=== PATIENT | female | born 1945 | race Caucasian/White ===

== ENCOUNTER 2018-03-02 06:32 | Inpatient (IN) | payer MEDICARE ==
[2018-03-02] VITALS (27 sets, daily range): BP systolic 119–168; BP diastolic 57–81; PULSE 73–113; RESP 12–18; Ht 154.9 cm; Wt 71.0 kg
[~2018-03-02] VITALS: Ht 154.9 cm; Wt 71.0 kg
[2018-03-02] MEDS ORDERED: LOSA1TAB28 PO (07:31)
[2018-03-02] MEDS ORDERED: RANI150T5 PO (07:31)
[2018-03-02] MEDS ORDERED: ASPI-817 PO (07:31)
[2018-03-02] MEDS ORDERED: METO-429 PO (07:31)
[2018-03-02] MEDS ORDERED: ATOR40TA68 PO (07:31)
[2018-03-02] MEDS ORDERED: POLYMYXIN B 500000 UNIT INJ ONE (07:45)
[2018-03-02] MEDS ORDERED: BACITRACIN 50000 UNITS INJ ONE (07:46)
--- NOTE | 2018-03-02 07:51 | PREAC ---
Date/Time of Note Date/Time of Note DATE: 03/02/18 TIME: 07:49 Anesthesia Eval and Record Evaluation Time Pre-Procedure Interview DATE: 03/02/18 TIME: 07:49 Age 72 Sex female NPO: 8 hrs Preoperative diagnosis ight knee OA Planned procedure right knee arthroplasty Past Medical History Past Medical History: Includes Cardio: HTN, Dyslipidemia, Other (EF 60%) Surgery & Anesthesia Issues No known issue Meds Anticoagulation: No Beta Bree within 24 hr: Yes Reported Medications Metoprolol Tartrate* (Lopressor*) 50 Mg Tab, 50 MG PO DAILY, #60 TAB 03/02/18 Atorvastatin* (Atorvastatin*) 40 Mg Tablet, 20 MG PO QHS, #30 TAB 03/02/18 Aspirin* (Aspirin* EC) 81 Mg Tablet.dr, 81 MG PO DAILY, TAB 03/02/18 Losartan-Hydrochlorothiazide (Losartan-HCTZ) 100-12.5 Mg Tab, 1 TAB PO DAILY, TAB 03/02/18 Ranitidine Hcl* (Ranitidine Hcl*) 150 Mg Tablet, 150 MG PO HS, #30 TAB 03/02/18 Meds reviewed: Yes Allergies Coded Allergies: No Known Allergy (Unverified , 03/02/18) Allergies Reviewed: Yes Labs/Studies Labs Reviewed: Reviewed by anesthesiologist Result Diagram: 03/02/18718 Laboratory Tests 03/02/18 07:19 test: N/A Studies: ECG, CXR (nl) Pre-procedure Exam Last vitals Vital Signs Date Temp Pulse Resp B/P (MAP) Pulse Ox O2 O2 Flow FiO2 Time Delivery Rate 03/02/18 97.7 76 18 166/71 99 Room Air 07:32 (102) Airway: Adequate mouth opening Mallampati: Mallampati I Teeth: Abnormal (denture) Lung: Normal Heart: Normal ASA Physical Status ASA physical status: 2 Emergency: None Planned Anesthetic General/MAC: ETT, LMA Neuraxial: Spinal Nerve block: Femoral (right) Planned Pain Management Single shot nerve block, Parenteral pain med Pre-operative Attestations Prior to commencing anesthesia and surgery, the patient was re-evaluated, there was verification of: *The patient's identity *The results of appropriate recent lab work and preoperative vital signs *The above evaluation not changing prior to induction *Anesthetic plan, risk benefits, alternative and complications discussed with patient/family; questions answered; patient/family understands, accepts and wishes to proceed. ALEXI OSORIO MD Mar 02, 2018 07:51
[2018-03-02] MEDS ORDERED: METOCLOPRAMIDE 10 MG INJ ONE (08:00)
[2018-03-02] MEDS ORDERED: morphine SULFATE/PF (10 MG/10 ML) INJ ONE (08:00)
[2018-03-02] MEDS ORDERED: ROPIVACAINE 0.5 % 30 ML VIAL ONE (08:00)
[2018-03-02] MEDS ORDERED: MIDAZOLAM 1 MG/ML 2 ML INJ ONE (08:00)
[2018-03-02] MEDS ORDERED: CEFAZOLIN 1 GM INJ ONE (08:00)
[2018-03-02] MEDS ORDERED: ONDANSETRON 4 MG INJ IV PRN (08:00)
[2018-03-02] MEDS ORDERED: EPHEDrine SULFATE 50 MG/5 ML SYG ONE (08:00)
[2018-03-02] MEDS ORDERED: hydrALAzine 20 MG INJ IV PRN (08:00)
[2018-03-02] MEDS ORDERED: PROPOFOL 20 ML ONE (08:00)
[2018-03-02] MEDS ORDERED: LABETALOL HCL 20MG INJ IV PRN (08:00)
[2018-03-02] MEDS ORDERED: HYDROmorphONE 1 MG/5 ML IV SYRINGE IV PRN ×3 (08:00)
[2018-03-02] MEDS ORDERED: ONDANSETRON 4 MG INJ ONE (08:00)
[2018-03-02] MEDS ORDERED: DESFLURANE 15 MIN ONE (08:00)
[2018-03-02] MEDS ORDERED: FAMOTIDINE 20 MG INJ ONE (08:00)
[2018-03-02] MEDS ORDERED: FENTAnyl 50 MCG/ML VIAL ONE (08:04)
[2018-03-02] MEDS ORDERED: ROPIVACAINE 0.2% 20 ML VIAL ONE (08:05)
--- NOTE | 2018-03-02 08:15 | HPN ---
Date/Time of Note Date/Time of Note DATE: 03/02/18 TIME: 08:14 Interval H&P Admission Note Pt. seen H&P reviewed: No system changes STEVE GÓMEZ MD Mar 02, 2018 08:15
[2018-03-02] MEDS ORDERED: TRANEXAMIC ACID 1,000 MG in DEXTROSE 5% 100 ML IV ONE (09:00)
--- NOTE | 2018-03-02 10:58 | NUR ---
RECEIVED FROM OR VIA BED S/P RT. TK REPLACEMENT. DRESSING TO RT. KNEE DRY AND INTACT. IMMOBILIZER IN PLACE. ICE PACK APPLIED. IV INFUSING IN LT ARM # 20 ANGIOCATH. A- PUMP APPLIED BILATERALLY. PEDAL PULSE PALPABLE. MOVEMENT TO BOTH LOWER EXTREMITIES.
--- NOTE | 2018-03-02 11:17 | OPR ---
Date/Time of Note Date/Time of Note DATE: 03/02/18 TIME: 11:14 Operative Report Preoperative Diagnosis Right knee osteoarthritis Postoperative Diagnosis Same Operation/Procedure Performed Right total knee replacement Surgeon see signature line Rn Allergy SERINA King Anesthesia Type: general, spinal, other Anesthesiologist: ALEXI OSORIO MD Estimated Blood Loss: 100 - 150 ml's Transfusion none Specimen None Grafts/Implants [employer] triathlon implants Femur size 2 Tibia size 2 Insert 11 mm Patella A35mm Complications none Pt Condition Post Procedure: stable Disposition: PACU Procedure Description INDICATIONS FOR PROCEDURE: This is a 72-year-old female who has had progressive pain in the right knee. The patient has failed nonoperative treatment and now presents for elective total knee replacement. Risks and benefits were discussed with the patient, risks including but not limited to infection, bleeding, blood clots, dislocation, fracture, knee stiffness, nerve damage, blood vessel damage, along with other medical, anesthetic and surgical complications were discussed. Informed consent was obtained. DESCRIPTION OF PROCEDURE: The patient's correct extremity was identified in the preoperative area. The patient was brought back to the operating room where a spinal anesthetic was placed followed by an adductor canal block. The correct extremity was then prepped and draped in the standard sterile manner. A timeout was performed. Esmarch was used to exsanguinate. The thigh tourniquet was inflated to 250 mmHg. I then made a standard midline incision for approaching the knee. I went through skin and subcutaneous tissue, made a medial parapatellar arthrotomy. Then, flexed the knee and introduced an intramedullary alignment guide. Distal femoral cut was made and then the extramedullary alignment guide was used to make the tibial cut. Flexion and extension gaps were checked. There were symmetric. The knee went from full extension to full flexion. I then turned my attention to the patella. I used an [id number] mill type cutting guide, cut the patellar to appropriate thickness and sized the patella. I then trialed the patella. The patella tracked well without any external pressure. I then made the peg holes for the femoral trial. Punched the tibia. I took out all trial components. Thoroughly irrigated the bony surfaces, dried them with a lap sponge. I then proceeded to cement the tibia, femur and patellar components. A trial insert was used till the cement hardened. After the cement hardened, I thoroughly irrigted the knee. The knee was well balanced. I then let down the tourniquet, obtained adequate hemostasis. I thoroughly irrigated the knee. I then impacted the appropriate all poly insert until it locked into place and I had full range of motion with just a jog of opening with varus and valgus stress. I then turned my attention to closure. I closed the medial parapatellar arthrotomy with interrupted #1 Vicryl, subcutaneous tissue was closed with 2-0 Vicryl, skin with van. Dry sterile dressings were applied. The patient had good perfusion to her foot with a 2+ dorsalis pedis pulse. She was then extubated and transported to recovery in stable condition. STEVE GÓMEZ MD Mar 02, 2018 11:17
[2018-03-02] MEDS ORDERED: DOCUSATE SODIUM 100 MG CAP PO ONE (11:30)
[2018-03-02] MEDS ORDERED: MAGNESIUM HYDROXIDE 30ML CUP PO PRN (11:30)
[2018-03-02] MEDS ORDERED: NALOXONE (0.4 MG/ML) INJ IV PRN (11:30)
[2018-03-02] MEDS ORDERED: NACL 0.9% 3 ML SYG IV SCH (11:30)
[2018-03-02] MEDS ORDERED: BISACODYL 10 MG SUPP PR PRN (11:30)
[2018-03-02] MEDS ORDERED: NA PHOSPHATE/BIPHOS 133 ML ENEMA PR PRN (11:30)
[2018-03-02] MEDS: CEFAZOLIN 2 GM/50 ML (PMX) 50 ML IVPB SCH ×2 (11:55→19:50)
--- NOTE | 2018-03-02 11:58 | PAC ---
Date/Time of Note Date/Time of Note DATE: 03/02/18 TIME: 11:58 Post-Anesthesia Notes Post-Anesthesia Note Last documented vital signs Vital Signs Date Temp Pulse Resp B/P (MAP) Pulse Ox O2 O2 Flow FiO2 Time Delivery Rate 03/02/18 Nasal 3.0 11:38 Cannula 03/02/18 98.1 70 12 142/57 97 11:20 (85) 03/02/18 98.2 11:00 03/02/18 76 07:32 Activity: WNL Respiratory function: WNL Cardiovascular function: WNL Mental status: Baseline Pain reasonably controlled: Yes Hydration appropriate: Yes Nausea/Vomiting absent: No ALEXI OSORIO MD Mar 02, 2018 11:58
[2018-03-02] MEDS: ONDANSETRON 4 MG INJ IV SCH ×3 (12:03→23:58)
--- NOTE | 2018-03-02 12:20 | NUR ---
TRANSPORTED TO . ACCOMPANIED BY TRANSPORT IN STABLE CONDITION. DRESSING TO RT. KNEE DRY AND INTACT. ICE PACK MAINTAINED. IMMOBILIZER IN PLACE. PT CALLED AND WILL FOLLOW PT. IN ROOM.PETIT CATH DRAINING CLEAR YELLOW URINE. A- PUMPS ON BILATERALLY. . IV PATENT. DENIES PAIN AT PRESENT. MOVEMENT AND SENSATION TO BOTH EXTREMETIES AND FEET.
--- NOTE | 2018-03-02 12:20 | NUR ---
REPORT GIVEN TO FABIAN CEVALLOS. FAMILY CALLED AND UPDATED RE- STATUS AND RM. KHAN..
[2018-03-02] MEDS: ENOXAPARIN 40 MG/0.4 ML SYG SC SCH ×2 (12:55→20:44)
[2018-03-02] MEDS: SOD CHLORIDE 0.9% 1,000 ML IV SCH (12:57)
--- NOTE | 2018-03-02 14:30 | NUR ---
PT evaluation Therapy day number 1 Evaluation Start Time 14:30 Evaluation End Time 15:15 Evaluation Total Time 45 min Subjective Current complaint of pain Pain Scale NUMERIC Pain Intensity 8 (0-10) Patient Stated Goal for Pain Relief 0 (0-10) Pain Level Comment patient medicated following evaluation, 06/22 initially Pre Treatment Vital Signs Stable Yes Supine to Sit Supervised Transfer Sit to Stand Ability Minimum Assist Bed Mobility Sit to Supine Supervised Bed Transfer Ability Minimum Assist Chair Transfer Ability Minimum Assist Additional Mobility Comments min A FWW for safety, supervised bed mobility for sequencing Gait Assist Levels Minimum Assist Assistive Devices Front Wheel Walker Ambulation Distance 25 feet Additional Gait Comments step to gait, antaligic gait with weight bearing R, knee immobilizer Weight Bearing Assessment Label Right Lower Extremity Weight Bearing Status Weight Bearing as Fanny Additional Weight Bearing Comments with knee immobilizer Static Sitting Balance Good Dynamic Sitting Balance Good Standing Static Balance Fair Dynamic Standing Balance Fair Safety Judgement Good Activity Tolerance Fair Equipment Present A pump Ulloa Catheter IV pump Additional Equipment Present knee immobilzer Post Treatment Pain Intensity 8 0-10 Quality Indicators Dizziness Light headedness Additional Post Treatment Comment See note Total Minutes 45 Total Units 3 PT Technical Record Comment 72 yo female presents s/p R TKA secondary to right knee OA on 03/02/18 PMH: HTN, Dyslipidemia, EF 60% Precautions: WBAT RLE, fall risk. R TKA protocol PLOF: Patient lives alone in 1st floor apartment, Per son, pt has SPC and FWW but refusing to use them. Previously mod I with no device but "limping" S: Patient in bed, agreeable to PT evaluation. Pt cleared for activity per RN. Son present in room to clarify PLOF and translate O: PT evaluation completed, pt returned back to bed following therapy intervention in direct care of RN. Patient complained of nausea and dizziness throughout however vitals stable throughout. Pain associated with weight bearing, and nausea throughout however no reported shortness of breath on room air. Spoke to RN regarding pt response to activity and PT plan of care. Unable to place CPM due to unavailability. A: Patient demonstrates fair mobility throughout with good ability to increase weight bearing on RLE despite reported pain. Patient receptive to physical therapy education and motivated to participate. PT educated patient and family regarding recovery and plan of care, both receptive. Patient could continue to benefit from skilled inpatient PT to improve strength, endurance, and functional mobility P: next treatment, CPM set up and review HEP with providing packet of ther-ex Recommendation: patient will require FWW for mobility, however family reports owning one, defer discharge disposition to MD.
[2018-03-02] MEDS: HYDROmorphONE 1 MG/ML SYG IV PRN (14:58)
[2018-03-02] MEDS: METOPROLOL 50 MG TAB PO SCH (15:00)
--- NOTE | 2018-03-02 15:25 | NUR ---
PT note Therapy day number 1 Subjective Current complaint of pain Pain Scale FLACC Pain Intensity 5 (0-10) Patient Stated Goal for Pain Relief 0 (0-10) Pain Level Comment R knee pain Pre Treatment Vital Signs Stable Yes Transfer Training Start Time 15:25 Additional Mobility Comments For CPM set up and training Transfer Training End Time 15:50 Total Transfer Training Time 25 min (8-127) Equipment Present A pump Ulloa Catheter IV pump Post Treatment Pain Intensity 5 0-10 Additional Post Treatment Comment See note Total Treament Time 25 min (8-127) Total Minutes 25 Total Units 2 PT Technical Record Comment S: CPM arrived, patient agreeable to intervention, son present at bedside O: PT intervention completed, performed CPM set up and education. Patient placed on CPM 0deg ext, 70 deg flex with good tolerance. AROM assessment of R knee 0-60 with pain at end range. Spoke to RN regarding pt response to activity and PT plan of care. patient and son receptive throughout treatment intervention. Provided HEP packet A: Patient presents with good tolerance to activity and receptive to PT education. Patient able to tolerate CPM without adverse limitations and overall demonstrates good compliance with treatment intervention P: next treatment review HEP from provided packet and improve gait tolerance with weight bearing on FWW
[2018-03-02] MEDS: HYDROCHLOROTHIAZIDE 12.5 MG CAP PO SCH (17:16)
[2018-03-02] MEDS: LOSARTAN 50 MG TAB PO SCH (17:16)
--- NOTE | 2018-03-02 18:15 | NUR ---
END OF SHIFT NOTE PT RESTING IN BED, A/A/OX4. DENIES PAIN, SOB OR DISCOMFORT AT THIS TIME. TOLERATED CPM WELL. REPORTS NAUSEA RESOLVED, TOLERATING CLEAR LIQUID DIET AT THIS TIME. SAFETY MAINTAINED THROUGHOUT SHIFT. BED IN LOW POSITION, CALL LIGHT IN REACH. WILL ENDORSE POC TO NOC RN.
[2018-03-02] MEDS ORDERED: ACETAMINOPHEN 500 MG TAB PO PRN (20:30)
[2018-03-02] MEDS: ATORVASTATIN 20 MG TAB PO SCH (20:43)
[2018-03-02] MEDS ORDERED: RANITIDINE 150 MG TAB PO SCH (21:00)
--- NOTE | 2018-03-03 00:59 | HP ---
DATE OF ADMISSION: 03/02/2018 CHIEF COMPLAINT: Right knee pain. HISTORY OF PRESENT ILLNESS: The patient is a 72-year-old female with history of hypertension, dyslip idemia, who was seen by Dr. Gómez as an outpatient for worsening right knee pain due to degenerat judit joint disease. The patient failed conservative treatment and was recommended to undergo total kn ee replacement. The patient was seen by Dr. Freddie Roe for cardiac clearance and was cleared for surgery. The patient was brought in to hospital today and underwent right total knee replacement. Postoperative pain is being managed by oxycodone and Dilaudid. The patient denies any chest pain or shortness of breath. No history of headaches and syncope. No history of CVA in the past. No known history of diabetes. No history of recent nausea, vomiting or diarrhea. No history of dysuria or he maturia prior to surgery. No history of any focal weakness including both motor and sensory deficit prior to surgery. REVIEW OF SYSTEMS: Other than postoperative pain, rest of review of systems was unremarkable. A tot al of 10 systems were reviewed and all positive and negative findings have been described in HPI. Re st of review of systems is unremarkable. PAST SURGICAL HISTORY: None. ALLERGIES: NONE. SOCIAL HISTORY: No smoking or alcohol. FAMILY HISTORY: Noncontributory. MEDICATION LIST: Reviewed and reconciled. PHYSICAL EXAMINATION: GENERAL: The patient is awake, alert, fairly oriented. VITAL SIGNS: Temperature 98.6, pulse 73, respirations 16, blood pressure 131/61, O2 saturation 96% o n 2 liter nasal cannula. HEENT: Atraumatic, normocephalic. Conjunctivae are normal. Oropharynx is clear. NECK: Supple. No thyromegaly. No carotid bruit. CHEST: Fairly clear. No use of accessory muscles. CARDIOVASCULAR: Regular rate and rhythm. S1, S2 normal. ABDOMEN: Soft, nondistended, nontender. EXTREMITIES: No pedal edema. Pedal pulses palpable. SKIN: Without acute rash. NEUROLOGIC: The patient is awake, alert, fairly oriented. No gross deficit, although exam was limit ed due to immediate postoperative state. LABORATORY DATA: Done this morning, WBC 6.6, hemoglobin 13.7, platelet 251. Sodium 138, potassium 4 .5, BUN 15, creatinine 0.6. AST 24, ALT 11, alkaline phosphatase 101. Coagulation profile was unrem arkable. IMPRESSION: 1. Right knee osteoarthritis status post total right knee arthroplasty. 2. Hypertension. 3. Dyslipidemia. PLAN: 1. The patient is admitted on medical floor. 2. The patient will be started on clear liquid diet, which will be advanced as tolerated. 3. As mentioned above, the patient will be given oxycodone and IV Dilaudid. We will add Tylenol for mild pain and fever. 4. As far as hypertension is concerned, we will continue Lopressor, Cozaar and hydrochlorothiazide a s tolerated. 5. For DVT prophylaxis, the patient has been started on Lovenox. 6. The patient will be continued on Lipitor at home. 7. Plan of care was discussed with the patient's family. 8. We will continue to follow her from medical standpoint. Dictated By: ANDREW SMITH MD AB/NTS Conf#: [id number] DID#: [id number] CC: STEVE GÓMEZ MD;*EndCC*
[2018-03-03] MEDS: oxyCODONE 5 MG TAB PO PRN ×4 (01:48→23:58)
[2018-03-03] MEDS: SOD CHLORIDE 0.9% 1,000 ML IV SCH ×3 (01:49→23:59)
[2018-03-03 03:25] VITALS: BP 120/58; PULSE 77; RESP 18
[2018-03-03] MEDS: CEFAZOLIN 2 GM/50 ML (PMX) 50 ML IVPB SCH (03:33)
[2018-03-03] MEDS: HYDROmorphONE 1 MG/ML SYG IV PRN ×5 (03:38→19:46)
[2018-03-03] MEDS: ONDANSETRON 4 MG INJ IV SCH (05:30)
--- NOTE | 2018-03-03 06:38 | NUR ---
RN EOSS NOTES: Patient reported good relief from administered PRN Roxicodone pills and Dilaudid IV this shift, afebrile with stable V/S over the last 12 hours. Encouraged to use incentive spirometer more frequently. RN has requested transporter to bring a [employer] machine for patient use; currently ice compress applied to right knee as needed which helps offer pain relief as well. Ulloa catheter discontinued @0630, due to void in the next 6-8 hours. Will endorse info at shift change to incoming day RN and endorse plan of care. Needs assisted.
[2018-03-03 07:56] VITALS: BP 127/60; PULSE 76; RESP 15
[2018-03-03] MEDS ORDERED: NON-FORMULARY/PATIENT OWN MED (Losartan-Hydrochlorothiazide (Losartan-HCTZ) 1 TAB) PO SCH (09:00)
[2018-03-03] MEDS: DOCUSATE SODIUM 100 MG CAP PO SCH ×2 (09:00→21:08)
[2018-03-03] MEDS: LOSARTAN 50 MG TAB PO SCH (09:01)
[2018-03-03] MEDS: HYDROCHLOROTHIAZIDE 12.5 MG CAP PO SCH (09:02)
[2018-03-03] MEDS: METOPROLOL 50 MG TAB PO SCH (09:03)
[2018-03-03] MEDS: ENOXAPARIN 40 MG/0.4 ML SYG SC SCH (09:06)
--- NOTE | 2018-03-03 09:45 | NUR ---
PT note Therapy day number 2 Subjective Current complaint of pain Pain Scale NUMERIC Pain Intensity 8 (0-10) Patient Stated Goal for Pain Relief 0 (0-10) Pain Level Comment R peroneals, TTP Pre Treatment Vital Signs Stable Yes Exercise Assessment Label Right Lower Extremity Exercise Type Active ROM Additional Exercise Comments per HEP packet Exercise Start Time 09:45 Exercise End Time 10:00 Total Exercise Time 15 min (8-127) Supine to Sit Minimum Assist Transfer Sit to Stand Ability Supervised Bed Mobility Sit to Supine Minimum Assist Bed Transfer Ability Supervised Chair Transfer Ability Supervised Toileting Ability Supervised Additional Mobility Comments supervised with use of FWW for transfers Gait Training Start Time 10:00 Gait Assist Levels Stand by Assist Assistive Devices Front Wheel Walker Ambulation Distance 75 feet Additional Gait Comments 75' with FWW, SBA Gait Training End Time 10:25 Total Gait Training Treatment Time 25 min (8-127) Weight Bearing Assessment Label Right Lower Extremity Weight Bearing Status Weight Bearing as Fanny Static Sitting Balance Good Dynamic Sitting Balance Good Standing Static Balance Fair Dynamic Standing Balance Fair Additional Balance Assessments Comments with use of FWW Safety Judgement Fair Activity Tolerance Fair Equipment Present A pump IV pump Post Treatment Pain Intensity 8 0-10 Additional Post Treatment Comment See note Total Treament Time 40 min (8-127) Total Minutes 40 Total Units 3 PT Technical Record Comment S: Pt in bed, agreeable to PT intervention. Pt reports significant RLE pain along peroneals, Pt cleared for activity per RN O: PT intervention completed, pt returned back to bed following therapy intervention with call light within reach and bed alarm activated. Patient assisted to bathroom following ambulation and independent with hygiene. patient assisted for CPM set up. Tolerates 0-45 deg, limited by pain. RN notified of patient progress A: Pt presents with fair mobility throughout however limited secondary to pain. Patient demonstrates good safety awareness and improve weight bearing on RLE with knee immobilizer. However tenderness to palpation along peroneals with pain with dorsiflexion of the ankle, RN aware. Patient receptive to PT instruction and compliant with plan of care, however limitation of pain. P: Progress as tolerated
--- NOTE | 2018-03-03 13:02 | PN ---
Date/Time of Note Date/Time of Note DATE: 03/03/18 TIME: 12:54 Assessment/Plan Lines/Catheters IV Catheter Type (from Nrsg): Peripheral IV Ulloa in Place (from Nrsg): No Assessment/Plan Assessment/Plan POD 1 s/p Right TKA Stable Patient received Lovenox 40 instead of 30 bid. She has had excessive bleeding into her knee. Will stop Lovenox now. Ultrasound Right LE to r/o DVT Pain control Knee immobilizer, hold CPM for now. OOB with knee immobilizer. Subjective 24 Hr Interval Summary Complaining of pain. Exam/Review of Systems Vital Signs Vitals Vital Signs Date Temp Pulse Resp B/P (MAP) Pulse Ox O2 O2 Flow FiO2 Time Delivery Rate 03/03/18 98.3 76 15 127/60 96 Room Air 07:56 (82) 03/02/18 2.0 16:30 Intake and Output 03/02/18 03/02/18 03/03/18 1515:00 23:00 07:00 IntakeIntake Total 1660 ml 1220 ml 3060 ml OutputOutput Total 125 ml 1150 ml BalanceBalance 1535 ml 1220 ml 1910 ml Exam Free Text/Dictation Right LE Incision c/d/i Calf soft and non tender, slight swelling Moderate effusion Foot warm and well perfused Intact motor and sensory function Results Result Diagram: 03/03/18 0436 03/02/18 0719 STEVE GÓMEZ MD Mar 03, 2018 13:02
--- NOTE | 2018-03-03 13:47 | PN ---
Date/Time of Note Date/Time of Note DATE: 03/03/18 TIME: 13:44 Assessment/Plan VTE Prophylaxis Risk score (from Nsg)>0 risk: 8 SCD applied (from Nsg): Yes Lines/Catheters IV Catheter Type (from Nrsg): Peripheral IV Urinary Cath still in place: No Assessment/Plan Assessment/Plan 1. Right knee osteoarthritis status post total right knee arthroplasty. - per ortho sx 2. Hypertension- continue Lopressor, Cozaar and hydrochlorothiazide as tolerated. 3. Dyslipidemia-will be continued on Lipitor at home. 4. For DVT prophylaxis, the patient has been started on Lovenox. Plan of care was discussed with staff We will continue to follow her from medical standpoint. Result Diagram: 03/03/18 0436 03/02/18 0719 Results 24hrs Laboratory Tests Test 03/03/18 04:36 White Blood Count 9.0 # Red Blood Count 3.57 #L Hemoglobin 10.8 #L Hematocrit 31.4 #L Mean Corpuscular Volume 88.0 Mean Corpuscular Hemoglobin 30.3 Mean Corpuscular Hemoglobin Concent 34.4 Red Cell Distribution Width 13.2 Platelet Count 174 # Mean Platelet Volume 10.7 H Immature Granulocytes % 0.300 Neutrophils % 64.7 Lymphocytes % 19.3 Monocytes % 15.1 H Eosinophils % 0.3 Basophils % 0.3 Nucleated Red Blood Cells % 0.0 Immature Granulocytes # 0.030 Neutrophils # 5.8 Lymphocytes # 1.7 Monocytes # 1.4 H Eosinophils # 0.0 Basophils # 0.0 Nucleated Red Blood Cells # 0.0 Subjective 24 Hr Interval Summary Musculoskeletal: bone/joint pain, restricted range of motion Exam/Review of Systems Vital Signs Vitals Vital Signs Date Temp Pulse Resp B/P (MAP) Pulse Ox O2 O2 Flow FiO2 Time Delivery Rate 03/03/18 98.3 76 15 127/60 96 Room Air 07:56 (82) 03/02/18 2.0 16:30 Intake and Output 03/02/18 03/02/18 03/03/18 1515:00 23:00 07:00 IntakeIntake Total 1660 ml 1220 ml 3060 ml OutputOutput Total 125 ml 1150 ml BalanceBalance 1535 ml 1220 ml 1910 ml Exam Musculoskeletal: range of motion Medications Medications Current Medications Sodium Chloride 1,000 ml @ 80 mls/hr [id number] IV Last administered on 03/03/18at 01:49; Admin Dose 80 MLS/HR; Start 03/02/18 at 11:07 IV Flush (NS 3 ml) 3 ml PER PROTOCOL IV ; Start 03/02/18 at 11:30 Oxycodone HCl (Roxicodone) 15 mg Q4H PRN PO PAIN; Start 03/02/18 at 11:30 Oxycodone HCl (Roxicodone) 10 mg Q4H PRN PO PAIN Last administered on 03/03/18at 10:33; Admin Dose 10 MG; Start 03/02/18 at 11:30 Oxycodone HCl (Roxicodone) 5 mg Q4H PRN PO PAIN; Start 03/02/18 at 11:30 Hydromorphone HCl (Dilaudid) 1 mg Q3H PRN IV BREAKTHROUGH PAIN Last administered on 03/03/18at 13:03; Admin Dose 1 MG; Start 03/02/18 at 11:30 Pantoprazole (Protonix Tab) 40 mg DAILY@06 PO ; Start 03/04/18 at 06:00 Docusate Sodium (Colace) 200 mg BID PO Last administered on 03/03/18at 09:00; Admin Dose 200 MG; Start 03/03/18 at 09:00; Stop 03/06/18 at 08:59 Simethicone (Mylicon) 80 mg TID PRN PO DISTENSION/GAS/BLOATING; Start 03/02/18 at 11:30 Senna/Docusate Sodium (Senokot-S) 2 tab BID PRN PO CONSTIPATION; Start 03/02/18 at 11:30 Magnesium Hydroxide (Milk Of Mag) 30 ml HS PRN PO CONSTIPATION; Start 03/02/18 at 11:30 Bisacodyl (Dulcolax Supp) 10 mg DAILY PRN [place] CONSTIPATION; Start 03/02/18 at 11:30 Sodium Biphosphate/ Sodium Phosphate (Fleet Enema) 133 ml DAILY PRN [place] CONSTIPATION; Start 03/02/18 at 11:30 Naloxone HCl (Narcan) 0.2 mg Q2M PRN IV DECREASED REPIRATORY RATE; Start 03/02/18 at 11:30 Enoxaparin Sodium (Lovenox) 40 mg DAILY SC Last administered on 03/03/18at 09:06; Admin Dose 40 MG; Start 03/03/18 at 09:00 Atorvastatin Calcium (Lipitor) 20 mg DAILY@21 PO Last administered on 03/02/18 20:43; Admin Dose 20 MG; Start 03/02/18 at 21:00 Metoprolol Tartrate (Lopressor) 50 mg DAILY PO Last administered on 03/03/18 09:03; Admin Dose 50 MG; Start 03/02/18 at 14:30 Losartan Potassium (Cozaar) 100 mg DAILY PO Last administered on 03/03/18 09:01; Admin Dose 100 MG; Start 03/02/18 at 15:30 Hydrochlorothiazide (Hydrochlorothiazide) 12.5 mg DAILY PO Last administered on 03/03/18 09:02; Admin Dose 12.5 MG; Start 03/02/18 at 15:30 Acetaminophen (Tylenol Tab) 500 mg Q4H PRN PO MILD PAIN(1-3)OR ELEVATED TEMP; Start 03/02/18 at 20:30 IRON CARVAJAL Mar 03, 2018 13:47
[2018-03-03 15:07] VITALS: BP 145/66; PULSE 84; RESP 17
--- NOTE | 2018-03-03 15:20 | NUR ---
PT note Therapy day number 2 Subjective Current complaint of pain Pain Scale FLACC Pain Intensity 10 (0-10) Patient Stated Goal for Pain Relief 0 (0-10) Pain Level Comment pain increased with weight bearing, RN aware Pre Treatment Vital Signs Stable Yes Transfer Training Start Time 15:20 Supine to Sit Minimum Assist Transfer Sit to Stand Ability Minimum Assist Bed Mobility Sit to Supine Maximum Assist Bed Transfer Ability Moderate Assist Chair Transfer Ability Moderate Assist Toileting Ability Moderate Assist Additional Mobility Comments significantly increased pain Transfer Training End Time 15:35 Total Transfer Training Time 15 min (8-127) Gait Assist Levels Moderate Assist Assistive Devices Front Wheel Walker Ambulation Distance 8 feet Weight Bearing Assessment Label Right Lower Extremity Weight Bearing Status Weight Bearing as Fanny Static Sitting Balance Fair Dynamic Sitting Balance Fair Standing Static Balance Fair Dynamic Standing Balance Fair Safety Judgement Good Activity Tolerance Poor Equipment Present A pump IV pump Post Treatment Pain Intensity 10 0-10 Additional Post Treatment Comment See note Total Treament Time 15 min (8-127) Total Minutes 15 Total Units 1 PT Technical Record Comment S: RN cleared pt for activity, Dopper resulted (-), per MD "continue physical therapy, D/C CPM" Patient getting up with MANAGER DISTRIBUTION to assist to bathroom, knee immmobilizer on. O: Assisted patient to bathroom however pt unable to ambulate without significant assist, required commode for toileting. patient assisted back to bed following therapy intervention and left in direct care of MANAGER DISTRIBUTION. Knee immobilzer on throughout treatment intervention, reports of pain throughout with weight bearing, no dizziness, or shortness of breath. Spoke to RN regarding pt response to activity and current condition A: patient presents with significantly increased pain throughout with minimal ability to weight bear on RLE. Patient requires cues to maintain safety with transfers as patient occasionally leaves walker during turn. Significant decline in functional mobility secondary to pain throughout. Expressed concerns to RN, to follow up 03/04/18. P: Progress as tolerated
--- NOTE | 2018-03-03 16:10 | NUR ---
FEVER PT'S TEMPERATURE 100.7, COOLING MEASURES APPLIED. TEMP 100.[address] GÓMEZ PAGED AND MESSAGE LEFT REGARDING ELEVATED TEMPERATURE. I.S. ENCOURAGED, CONTINUE COOLING MEASURES, WILL CONTINUE MONITORING.
--- NOTE | 2018-03-03 18:00 | NUR ---
END OF SHIFT NOTE PT RESTING IN BED, WITH SON AT BED SIDE. PT AFEBRILE AT THIS TIME, STILL NO CALL BACK FROM MD ORDERS. UNABLE TO PROCURE POLAR CARE FOR PT SINCE NO DISPOSABLE APPLICATORS AVAILABLE IN HOSPITAL AT THIS TIME. PER DISTRIBUTION, THEY ARE ON BACK ORDER. RIGHT KNEE STILL SWOLLEN, WITH RED DISCOLORATION. PT MEDICATED WITH DILAUDID AND OXYCODONE THROUGHOUT SHIFT DUE TO SEVERE PAIN. AT THIS TIME, PT REPORTS PAIN CONTROL. SAFETY MAINTAINED THROUGHOUT SHIFT. BED IN LOW POSITION, CALL LIGHT IN REACH, HOURLY ROUNDING DONE. WILL CONTINUE MONITORING AND WILL ENDORSE POC TO NOC RN.
[2018-03-03 20:00] VITALS: BP 150/66; PULSE 84; RESP 18
[2018-03-03 20:45] VITALS: BP 128/60; PULSE 79; RESP 18
[2018-03-03] MEDS: ATORVASTATIN 20 MG TAB PO SCH (21:08)
--- NOTE | 2018-03-03 23:12 | NUR ---
Hand-off report given to new primary RN Yen; patient is asleep in room snoring at this time. Plan of care endorsed.
--- NOTE | 2018-03-04 00:04 | NUR ---
RN NOTE received report at [id number] from FABIAN Brice. patient asleep, resting comfortably. awake at this time, vberbalized 7/10 pain on Right knee. roxicodone 10mg PO prn given.
[2018-03-04 03:39] VITALS: BP 131/72; PULSE 72; RESP 18
[2018-03-04] MEDS: oxyCODONE 5 MG TAB PO PRN ×4 (04:36→21:26)
[2018-03-04] MEDS: PANTOPRAZOLE (EC) 40 MG TAB PO SCH (05:28)
--- NOTE | 2018-03-04 06:23 | NUR ---
RN NOTE patient alert and oriented, able to make needs known. slept most through the shift. awakening between care. Afebrile, vital signs within limits. initailly pain was at 7/10 [id number] PO given as ordered. effective. at around 4am, complained of 4/10. roxicodone 1 tab given PRN as ordered. effective. ice pack applied to Right hip. Luisa's, son called and asked for updates. needs atteeded.
--- NOTE | 2018-03-04 08:00 | NUR ---
PT RECEIVED IN BED. A,A,OX4. NOT IN ANY ACUTE DISTRESS. THE PLAN OF CARE DISCUSSED W/ THE PT, VERBALIZED UNDERSTANDING. CALL LIGHT IN REACH. PT ENCOURAGED TO CALL FOR ASSISTANCE. WILL CONT. MONITORING. WILL CONT. W/ THE PLAN OF CARE.
[2018-03-04 08:32] VITALS: BP 119/57; PULSE 98; RESP 16
[2018-03-04] MEDS: ENOXAPARIN 40 MG/0.4 ML SYG SC SCH ×2 (09:00→09:06)
[2018-03-04] MEDS: DOCUSATE SODIUM 100 MG CAP PO SCH ×2 (09:04→21:27)
[2018-03-04] MEDS: LOSARTAN 50 MG TAB PO SCH (09:04)
[2018-03-04] MEDS: HYDROCHLOROTHIAZIDE 12.5 MG CAP PO SCH (09:04)
[2018-03-04] MEDS: METOPROLOL 50 MG TAB PO SCH (09:05)
--- NOTE | 2018-03-04 10:11 | NUR ---
PT NOTE [facility] Patient: Luisa Madera : 1945 Age/Sex: 72/F Unit#: [id number] Room/Bed: 431/A User: Karl Thomas PT Date: 03/04/18 09:40 Type: PT Technical Record Therapy day number 3 Subjective Current complaint of pain Pain Scale NUMERIC Pain Intensity 8 (0-10) Patient Stated Goal for Pain Relief 0 (0-10) Pain Level Comment R knee pain Pre Treatment Vital Signs Stable Yes Transfer Training Start Time 09:40 Supine to Sit Minimum Assist Transfer Sit to Stand Ability Stand by Assist Bed Mobility Sit to Supine Moderate Assist Bed Transfer Ability Contact Guard Assist Chair Transfer Ability Contact Guard Assist Toileting Ability Supervised Additional Mobility Comments with FWW Transfer Training End Time 09:52 Total Transfer Training Time 12 min (8-127) Gait Training Start Time 09:52 Gait Assist Levels Contact Guard Assist Assistive Devices Front Wheel Walker Ambulation Distance 30 feet Additional Gait Comments 10' x 2; 30' with FWW; step-to gait pattern, antalgic, see PT nte Gait Training End Time 10:11 Total Gait Training Treatment Time 19 min (8-127) Weight Bearing Assessment Label Right Lower Extremity Weight Bearing Status Weight Bearing as Fanny Static Sitting Balance Fair plus Dynamic Sitting Balance Fair plus Standing Static Balance Fair plus Dynamic Standing Balance Fair Additional Balance Assessments Comments FWW Safety Judgement Good Activity Tolerance Poor Equipment Present A pump Additional Equipment Present knee immmobilizer Post Treatment Pain Intensity 10 0-10 Additional Post Treatment Comment SEE PT NOTE Total Treament Time 31 min (8-127) Total Minutes 31 Total Units 2 PT Technical Record Comment S: Pt reported knee pain, states she is feeling better compared to yesterday O: FABIAN Wheeler cleared pt for PT session. Pt received semi-supine in bed, donning knee immobilizer, ice on knee. Noted R knee warmth. Pt participated in interventions above, assisted pt to restroom using adult FWW noted difficulty amb i.e. decreased stance time on R, hopping two steps on L for every R step, significantly antalgic; amb with pediatric walker with improved step length B though still antalgic, increased B UE support. Pt returned to bed, all needs in reach, no signs of distress, bed alarm activated, son present. A; Pt gait distance (30') limited by R LE pain, donned knee immobilizer throughout. Pt continues to require greatest assistance with bed mobility with difficulty lifting R LE in and out of bed. R knee still painful with wb with notable warmth .RN notified. P: Continue c PT POC; per note hold CPM for now
--- NOTE | 2018-03-04 11:52 | PN ---
DATE: 03/04/2018 SUBJECTIVE AND INTERVAL HISTORY: The patient had excessive bleeding into her right knee and Lovenox was discontinued. The patient also underwent venous Doppler which was negative for DVT. The patient denies any chest pain or shortness of breath. The patient still has postoperative pain. The patient also had a T-max of 100.7 yesterday. No reported any active bleeding today from incision site. PHYSICAL EXAMINATION: GENERAL: Reveals the patient to be awake, alert. VITAL SIGNS: T-max 100.7, current temperature 97.8, pulse 98, respiratory rate 16, blood pressure 119/57, O2 saturation 94% on room air. HEENT: No eye discharge or redness. Conjunctivae and lids are normal. Oropharynx is grossly negative. NECK: No mass, no JVD. CHEST: Fairly clear. No use of accessory muscles. CARDIOVASCULAR: S1, S2 normal. No murmur. ABDOMEN: Soft, nondistended, nontender. EXTREMITIES: Pedal pulse is palpable. Incision has a dressing. No active bleeding outside the dressing. LABORATORY DATA: WBC 13.8, hemoglobin 9.5, platelet 171. Sodium 125 down from 138, potassium 4.2, BUN 11, creatinine 0.7, glucose 124. IMPRESSION: 1. Hyponatremia. Since the drop of sodium is so dramatic from within 48 hours, we will first do repeat BMP. We will hold off on hydrochlorothiazide. If patient persistently have hyponatremia, then we will initiate workup and treatment. 2. Mild leukocytosis and low-grade fever. We will send urine C and S. Hold off on empiric antibiotic at this time. 3. Status post right knee replacement. Continue postop care as per ortho. Continue SCD for now until systemic anticoagulation can be resumed once cleared by orthopedics. 4. Hypertension. Continue current regimen. We will add hydralazine on p.r.n. basis. 5. Postoperative anemia due to acute blood loss. We will add iron supplement. Continue stool softener. 6. Dyslipidemia. Continue Lipitor. Plan of care was discussed with patient's son as well as nursing staff. Dictated By: ANDREW SMITH MD AB/NTS Conf#: [id number] DID#: [id number] CC: STEVE GÓMEZ MD;*EndCC* ABBE
--- NOTE | 2018-03-04 12:30 | NUR ---
BELL FORM SIGNED. MET WITH PATIENT IN THE ROOM WITH DAUGHTER IN LAW. EXPRESSED THAT THEY WANT PATIENT TO GO TO [facility] FOR REHAB. CALLED [facility] A [phone] - SPOKE WITH RAVEN . INITIALLY SHE COULDN'T ACCEPT PT DUE TO OBSERVATION STATUS - DOES NOT HAVE 3 DAYS QUALIFYING STAY. HOWEVER, IZABELLA ZHANG SPOKE WITH HER AND GAVE THE MEDICAL ID NUMBER - SPOKE WITH RAVEN AGAIN AND SHE SAID THAT SHE CAN ACCEPT PT BECAUSE SHE HAS MEDICAL IN PLACE. FAXED INQUIRY TO RAVEN AT FAX # [phone] . IZABELLA ZHANG MADE AWARE. PT C/O INCREASED PAIN ON KNEE - AMBULATED 3O" WITH FWW.
[2018-03-04 14:54] VITALS: BP 137/63; PULSE 86; RESP 16
--- NOTE | 2018-03-04 17:38 | NUR ---
EOSS: PT'S HEMODYNAMICS AND RESPIR. STATUS ARE STABLE. NO COMPLICATIONS. PAIN MGMT IS EFFECTIVE. WILL CONT. MONITORING. WILL CONT. W/ THE PLAN OF CARE.
[2018-03-04 20:22] VITALS: BP 139/62; PULSE 88; RESP 18
[2018-03-04] MEDS: SOD CHLORIDE 0.9% 1,000 ML IV SCH (21:26)
[2018-03-04] MEDS: ATORVASTATIN 20 MG TAB PO SCH (21:27)
[2018-03-05] MEDS: SOD CHLORIDE 0.9% 1,000 ML IV SCH ×2 (02:20→15:38)
[2018-03-05 03:24] VITALS: BP 141/67; PULSE 93; RESP 18
[2018-03-05] MEDS: PANTOPRAZOLE (EC) 40 MG TAB PO SCH (05:43)
--- NOTE | 2018-03-05 06:42 | NUR ---
PT HAS HAD AN UNEVENTFUL NOC. MEDICATED FOR PAINX1 WITH EFFECTIVENESS. ASSISTED TO BSC A FEW TIMES THROUGH THE NOC. VSS, AFEBRILE. NOW RESTING IN BED WITH EYES CLOSED NO SS DISCOMFORT NOTED. WILL CONTINUE POC. PT PENDING SNIF VS ARU TRANSFER.
[2018-03-05 07:18] VITALS: BP 131/62; PULSE 92; RESP 19
--- NOTE | 2018-03-05 07:22 | OPPN ---
Date/Time of Note Date/Time of Note DATE: 03/05/18 TIME: 07:20 Event Note Anesthesia Note: A 72 year female s/p right knee replacement post op #1 under GA and spinal with duramorpg for post op pain is doing well.No pain, N/V. headache, itching. No neural deficit. are per surgery ALEXI OSORIO MD Mar 05, 2018 07:22
[2018-03-05] MEDS: DOCUSATE SODIUM 100 MG CAP PO SCH ×2 (08:13→21:06)
[2018-03-05] MEDS: METOPROLOL 50 MG TAB PO SCH (08:14)
[2018-03-05] MEDS: LOSARTAN 50 MG TAB PO SCH (08:14)
[2018-03-05] MEDS: oxyCODONE 5 MG TAB PO PRN ×3 (08:15→21:06)
--- NOTE | 2018-03-05 10:00 | NUR ---
PT note Therapy day number 4 Subjective Current complaint of pain Pain Scale NUMERIC Pain Intensity 8 (0-10) Patient Stated Goal for Pain Relief 0 (0-10) Pain Level Comment R knee "a little" prior to gait, 09/22 following Exercise Assessment Label Right Lower Extremity Exercise Type Active ROM Additional Exercise Comments Per HEP packet Transfer Training Start Time 10:00 Supine to Sit Supervised Transfer Sit to Stand Ability Supervised Bed Mobility Sit to Supine Minimum Assist Bed Transfer Ability Stand by Assist Chair Transfer Ability Stand by Assist Additional Mobility Comments with use of FWW for UE balance Transfer Training End Time 10:10 Total Transfer Training Time 10 min (8-127) Gait Training Start Time 10:10 Gait Assist Levels Stand by Assist Assistive Devices Front Wheel Walker Ambulation Distance 75 feet Additional Gait Comments 75' with FWW, see note for gait comments Gait Training End Time 10:38 Total Gait Training Treatment Time 28 min (8-127) Weight Bearing Assessment Label Right Lower Extremity Weight Bearing Status Weight Bearing as Fanny Static Sitting Balance Good Dynamic Sitting Balance Good Standing Static Balance Fair plus Dynamic Standing Balance Fair Additional Balance Assessments Comments with use of FWW Safety Judgement Good Activity Tolerance Fair Equipment Present A pump IV pump Additional Equipment Present knee immobilizer Post Treatment Pain Intensity 8 0-10 Additional Post Treatment Comment See note Total Treament Time 38 min (8-127) Total Minutes 38 Total Units 3 PT Technical Record Comment S:Patient in bed, agreeable to PT intervention. pt cleared for activity per RN, states patient had been premedicated O: PT interventions completed, pt returned back to bed following therapy intervention with call light within reach and bed alarm activated. Spoke to RN regarding pt resposne to activity and PT plan of care. Knee immobilizer on at all times. No reports of dizziness, or shortness of breath with activity. Pain with weight bearing. A: Patient presents with significantly improved mobility throughout and tolerance to weight bearing. Patient presents with limited step through of LLE with antalgic gait throughout. Patient receptive to PT education and demonstrates good awareness of functional limitations, patient requires assist for sit to supine due to heaviness of RLE but overall stronger mobility throughout. P: Progress gait and endurance as tolerated
--- NOTE | 2018-03-05 11:10 | NUR ---
REPORT WAS GIVEN TO FABIAN CEVALLOS FOR CONTINUITY OF CARE.
--- NOTE | 2018-03-05 12:03 | PN ---
Date/Time of Note Date/Time of Note DATE: 03/05/18 TIME: 12:02 Assessment/Plan VTE Prophylaxis Risk score (from [facility])>0 risk: 10 SCD applied (from [facility]): Yes Pharmacological prophylaxis: NA/contraindicated Pharm contraindication: bleeding Lines/Catheters IV Catheter Type (from [facility]): Peripheral IV Urinary Cath still in place: No Assessment/Plan Hospital Course Patient is awake alert remains hemodynamically stable afebrile complains of the right knee pain. Patient was was drop of hemoglobin, no indication for blood transfusion, continue to monitor H&H. Assessment/Plan -Right knee osteoarthritis, status post total right knee arthroplasty by Dr Gutiérrez on 03/02/18. -Anemia of acute blood loss. Continue to monitor H&H, will transfuse as needed. -Hyponatremia, improved. -Hypertension. -Dyslipidemia. Further recommendations based on clinical course. Plan of care discussed with Dr. Irene. Result Diagram: 03/05/18 0440 03/05/18 0440 Results 24hrs Laboratory Tests Test 03/04/18 14:47 03/05/18 04:40 Sodium Level 125 L 129 L Potassium Level 4.2 3.4 L Chloride Level 84 L 88 L Carbon Dioxide Level 30 32 H Anion Gap 11 9 Blood Urea Nitrogen 12 10 Creatinine 0.84 0.69 Est Glomerular Filtrat Rate mL/min Glucose Level 135 127 Calcium Level 8.7 8.8 White Blood Count 10.8 # Red Blood Count 2.93 L Hemoglobin 8.6 L Hematocrit 25.3 L Mean Corpuscular Volume 86.3 Mean Corpuscular Hemoglobin 29.4 Mean Corpuscular Hemoglobin Concent 34.0 Red Cell Distribution Width 12.6 Platelet Count 163 Mean Platelet Volume 10.0 Immature Granulocytes % 0.600 H Neutrophils % 75.8 Lymphocytes % 12.7 L Monocytes % 10.0 Eosinophils % 0.6 Basophils % 0.3 Nucleated Red Blood Cells % 0.0 Immature Granulocytes # 0.070 H Neutrophils # 8.2 H Lymphocytes # 1.4 Monocytes # 1.1 H Eosinophils # 0.1 Basophils # 0.0 Nucleated Red Blood Cells # 0.0 Exam/Review of Systems Vital Signs Vitals Vital Signs Date Temp Pulse Resp B/P (MAP) Pulse Ox O2 O2 Flow FiO2 Time Delivery Rate 03/05/18 98.2 92 19 131/62 96 07:18 (85) 03/03/18 Room Air 20:45 03/02/18 2.0 16:30 Intake and Output 03/04/18 03/04/18 03/05/18 1515:00 23:00 07:00 IntakeIntake Total 730 ml OutputOutput Total 200 ml 400 ml BalanceBalance -200 ml 330 ml Exam Constitutional: alert, oriented Head: normocephalic Respiratory: clear to auscultation Cardiovascular: nl pulses Gastrointestinal: soft, non-tender Musculoskeletal: other (R knee swelling, s/p surgery) Neurological: nl mental status Skin: nl turgor Medications Medications Current Medications IV Flush (NS 3 ml) 3 ml PER PROTOCOL IV ; Start 03/02/18 at 11:30 Oxycodone HCl (Roxicodone) 15 mg Q4H PRN PO PAIN Last administered on 03/05/18at 08:15; Admin Dose 15 MG; Start 03/02/18 at 11:30 Oxycodone HCl (Roxicodone) 10 mg Q4H PRN PO PAIN Last administered on 03/03/18at 23:58; Admin Dose 10 MG; Start 03/02/18 at 11:30 Oxycodone HCl (Roxicodone) 5 mg Q4H PRN PO PAIN Last administered on 03/04/18at 04:36; Admin Dose 5 MG; Start 03/02/18 at 11:30 Hydromorphone HCl (Dilaudid) 1 mg Q3H PRN IV BREAKTHROUGH PAIN Last administered on 03/03/18at 19:46; Admin Dose 1 MG; Start 03/02/18 at 11:30 Pantoprazole (Protonix Tab) 40 mg DAILY@06 PO Last administered on 03/05/18at 05:43; Admin Dose 40 MG; Start 03/04/18 at 06:00 Docusate Sodium (Colace) 200 mg BID PO Last administered on 03/05/18at 08:13; Admin Dose 200 MG; Start 03/03/18 at 09:00; Stop 03/06/18 at 08:59 Simethicone (Mylicon) 80 mg TID PRN PO DISTENSION/GAS/BLOATING; Start 03/02/18 at 11:30 Senna/Docusate Sodium (Senokot-S) 2 tab BID PRN PO CONSTIPATION; Start 03/02/18 at 11:30 Magnesium Hydroxide (Milk Of Mag) 30 ml HS PRN PO CONSTIPATION; Start 03/02/18 at 11:30 Bisacodyl (Dulcolax Supp) 10 mg DAILY PRN OK CONSTIPATION; Start 03/02/18 at 11:30 Sodium Biphosphate/ Sodium Phosphate (Fleet Enema) 133 ml DAILY PRN OK CONSTIPATION; Start 03/02/18 at 11:30 Naloxone HCl (Narcan) 0.2 mg Q2M PRN IV DECREASED REPIRATORY RATE; Start 03/02/18 at 11:30 Atorvastatin Calcium (Lipitor) 20 mg DAILY@21 PO Last administered on 03/04/18at 21:27; Admin Dose 20 MG; Start 03/02/18 at 21:00 Metoprolol Tartrate (Lopressor) 50 mg DAILY PO Last administered on 03/05/18at 08:14; Admin Dose 50 MG; Start 03/02/18 at 14:30 Losartan Potassium (Cozaar) 100 mg DAILY PO Last administered on 03/05/18at 08:14; Admin Dose 100 MG; Start 03/02/18 at 15:30 Acetaminophen (Tylenol Tab) 500 mg Q4H PRN PO MILD PAIN(1-3)OR ELEVATED TEMP; Start 03/02/18 at 20:30 Hydralazine HCl (Apresoline) 25 mg Q6H PRN PO ELEVATED SYSTOLIC BP; Start 03/04/18 at 11:30 Sodium Chloride 1,000 ml @ 75 mls/hr [id number] IV Last administered on 03/05/18at 02:20; Admin Dose 75 MLS/HR; Start 03/04/18 at 21:00 TERESITA ARNOLD Mar 05, 2018 12:03
--- NOTE | 2018-03-05 13:04 | PN ---
Date/Time of Note Date/Time of Note DATE: 03/05/18 TIME: 13:02 Assessment/Plan Lines/Catheters IV Catheter Type (from Nrsg): Peripheral IV [place]ll[place] in Place (from Nrsg): No Assessment/Plan Assessment/Plan POD 3 Stable Patient bled into her knee. Have stopped Lovenox Continued SCD's for now, continue to hold Lovenox No evidence of DVT on ultrasound Continue knee immobilizer Will continue to hold CPM H/H dropped again today, will continue to monitor. Re check tomorrow. Hold discharge for now. Subjective 24 Hr Interval Summary Pain is improved. Ambulated with PT today. Exam/Review of Systems Vital Signs Vitals Vital Signs Date Temp Pulse Resp B/P (MAP) Pulse Ox O2 O2 Flow FiO2 Time Delivery Rate 03/05/18 98.2 92 19 131/62 96 07:18 (85) 03/03/18 Room Air 20:45 03/02/18 2.0 16:30 Intake and Output 03/04/18 03/04/18 03/05/18 1515:00 23:00 07:00 IntakeIntake Total 730 ml OutputOutput Total 200 ml 400 ml BalanceBalance -200 ml 330 ml Exam Free Text/Dictation Right LE Incision c/d/i Large effusion in knee No erythema Calf soft and non tender Intact motor ans sensory function in foot Foot warm and well perfused Results Result Diagram: 03/05/1843903/05/18439 STEVE GÓMEZ MD Mar 05, 2018 13:04
--- NOTE | 2018-03-05 14:00 | NUR ---
PT note Therapy day number 4 Subjective Current complaint of pain Pain Scale NUMERIC Pain Intensity 8 (0-10) Patient Stated Goal for Pain Relief 0 (0-10) Pain Level Comment R knee Exercise Assessment Label Right Lower Extremity Exercise Type Active ROM Additional Exercise Comments per HEP packet, reviewed Exercise Start Time 14:00 Exercise End Time 14:15 Total Exercise Time 15 min (8-127) Safety Judgement Good Activity Tolerance Fair Equipment Present A pump Post Treatment Pain Intensity 8 0-10 Additional Post Treatment Comment See note Total Treament Time 15 min (8-127) Total Minutes 15 Total Units 1 PT Technical Record Comment S: Patient in bed, reports R knee "about the same". patient hesitant to move R knee but agreeable to PT intervention. O: PT intervention completed, pt returned back to bed following therapy intervention with call light within reach and bed alarm activated. Spoke to RN regarding pt response to activity and PT plan of care. Instructed on HEP and with duration and frequency with good return. A: Pt instructed on HEP with fair compliance. Patient understanding of frequency ability to perform ther-ex however hesitant to moving R knee. patient receptive to PT instruction and endorses ability to ambulate to and from bathroom with FWW assist P: Continue to progress mobility as tolerated with FWW
--- NOTE | 2018-03-05 18:30 | NUR ---
END OF SHIFT NOTE PT RESTING IN BED. A/A/OX4. REPORTS PAIN CONTROLLED WITH PO PAIN MEDS. INCISION CLEAN, DRY AND INTACT, NO S/S OF BLEEDING. PER MD NOTES, HH STILL DROPPING, DC TO [facility] HELD FOR TODAY. VSS, NO CHANGE IN CONDITION AT THIS TIME. SAFETY MAINTAINED THROUGHOUT SHIFT. BED IN LOW POSITION, CALL LIGHT IN REACH. HOURLY ROUNDS PERFORMED. WILL CONTINUE MONITORING AND WILL ENDORSE POC TO NOC RN.
[2018-03-05 20:45] VITALS: BP 123/60; PULSE 81; RESP 18
[2018-03-05] MEDS: ATORVASTATIN 20 MG TAB PO SCH (21:06)
[2018-03-05] MEDS ORDERED: POTASSIUM CHLORIDE 20 MEQ POWDER FOR ORAL SOLN PO ONE (21:30)
[2018-03-06] MEDS: oxyCODONE 5 MG TAB PO PRN ×4 (02:46→23:23)
[2018-03-06] MEDS: SOD CHLORIDE 0.9% 1,000 ML IV SCH ×2 (02:49→15:23)
[2018-03-06 02:57] VITALS: BP 169/76; PULSE 83; RESP 17
[2018-03-06] MEDS: PANTOPRAZOLE (EC) 40 MG TAB PO SCH (05:14)
--- NOTE | 2018-03-06 06:34 | NUR ---
PT MEDICATED FOR PAIN WITH EFFECTIVENESS REPORTED. NO OTHER COMPLAINTS VERBALIZED. USING WALKER W/O DIFFICULTY ET PIVOTS TO BSC WITH SBA. DC PLANNING IN PROGRESS. NOW ASLEEP WITH NO SS DISCOMFORT NOTED. WILL CONTINUE POC
[2018-03-06 07:49] VITALS: BP 129/60; PULSE 80; RESP 18
[2018-03-06] MEDS: LOSARTAN 50 MG TAB PO SCH (08:18)
[2018-03-06] MEDS: METOPROLOL 50 MG TAB PO SCH (08:20)
[2018-03-06] MEDS: SENNA/DOCUSATE NA (8.6MG/50MG) TAB PO PRN ×2 (09:24→21:00)
--- NOTE | 2018-03-06 09:30 | NUR ---
PT NOTE Therapy day number 5 Subjective Current complaint of pain Pain Scale NUMERIC Pain Intensity 6 (0-10) Patient Stated Goal for Pain Relief 0 (0-10) Pain Level Comment R knee Transfer Training Start Time 09:30 Supine to Sit Supervised Transfer Sit to Stand Ability Supervised Bed Mobility Sit to Supine Contact Guard Assist Toileting Ability Supervised Additional Mobility Comments Transfers w/AD Transfer Training End Time 09:42 Total Transfer Training Time 12 min (8-127) Gait Training Start Time 09:42 Gait Assist Levels Supervised Assistive Devices Front Wheel Walker Ambulation Distance 85 feet Additional Gait Comments step to pattern, slight antalgic gait, no LOB/buckling Gait Training End Time 10:09 Total Gait Training Treatment Time 27 min (8-127) Weight Bearing Assessment Label Right Lower Extremity Weight Bearing Status Weight Bearing as Fanny Static Sitting Balance Good Dynamic Sitting Balance Good Standing Static Balance Good Dynamic Standing Balance Fair Additional Balance Assessments Comments FWW Safety Judgement Good Activity Tolerance Fair Equipment Present A pump IV pump Additional Equipment Present knee immobilizer Post Treatment Pain Intensity 6 0-10 Variance Documentation SEE BELOW AND PT NOTE Total Treament Time 39 min (8-127) Total Minutes 39 Total Units 3 PT Technical Record Comment PT NOTE S: Pt stated, "I have some pain, but I am okay." Agreeable for PT and cleared per FABIAN Orona O: Received pt in semi-fowlers, alert. Donned/doffed knee immobilizer in bed w/Lyla for OOB activities. Bed mobility w/HOB elevated using BR Supervised/Nba. Applied gait belt at EOB. STS to FWW Supervised. Gait training performed w/FWW 85' Supervised. Noted step to pattern, slight antalgic gait, no LOB/buckling, mod BUE increased pressure om AD, and intermittent slow/steady alvina. Pt required VCs to maintain distance from AD for safe ambulation. Assisted pt back to room to toilet per pt's request Supervised. Assisted pt BTB CGA for RLE onto bed per pt's request. Left pt in comfort position, call light/phone within reach, bed alarmed, SCD's reapplied, and all needs met. FABIAN Delgado. informed of pt's status. A: Fair tolerance to tx. Pt showed no signs of distress or SOB during or after tx. No c/o dizziness or nausea throughout tx. Pt required frequent standing rest breaks due to reporting BUE fatigue on AD and R knee pain. P: Continue POC and progress as tolerated.
--- NOTE | 2018-03-06 13:55 | NUR ---
PT NOTE Therapy day number 5 Subjective Current complaint of pain Pain Scale NUMERIC Pain Intensity 6 (0-10) Patient Stated Goal for Pain Relief 0 (0-10) Pain Level Comment R knee Transfer Training Start Time 13:55 Chair Transfer Ability Supervised Additional Mobility Comments Left sitting in chair w/family present in room, RN aware Transfer Training End Time 14:05 Total Transfer Training Time 10 min (8-127) Gait Training Start Time 14:05 Gait Assist Levels Supervised Assistive Devices Front Wheel Walker Ambulation Distance 100 feet Additional Gait Comments step to pattern, slight antalgic gait, no LOB/buckling Gait Training End Time 14:34 Total Gait Training Treatment Time 29 min (8-127) Weight Bearing Assessment Label Right Lower Extremity Weight Bearing Status Weight Bearing as Fanny Static Sitting Balance Good Dynamic Sitting Balance Good Standing Static Balance Good Dynamic Standing Balance Fair Additional Balance Assessments Comments FWW Safety Judgement Good Activity Tolerance Good Equipment Present A pump IV pump Additional Equipment Present knee immobilizer Post Treatment Pain Intensity 7 0-10 Variance Documentation SEE BELOW AND PT NOTE Total Treament Time 39 min (8-127) Total Minutes 39 Total Units 3 PT Technical Record Comment PT NOTE S: Pt stated, "My pain is still there. Like a 6 right now." Agreeable for PT and cleared per FABIAN Orona O: Received pt standing outside restroom w/RN, pt care was transferred to this therapist. Applied gait belt. Gait training performed w/FWW 100' Supervised. Noted step to pattern, slight antalgic gait, no LOB/buckling, mod BUE increased pressure om AD, and intermittent slow/steady alvina. Pt required reminder VCs to maintan distance from AD for safe ambulation and to decrease BUE pressure from AD. Pt verbalized and demonstrated w/far return. Assisted pt back to room and pt sat and left in chairside per pt's request Supervised. Left pt in comfort position, call light/phone within reach, and all needs met. FABIAN Delgado. informed of pt's status and location. A: Good tolerance to tx. Pt showed no signs of distress or SOB during or after tx. No c/o dizziness or nausea throughout tx. Pt required less standing rest breaks compared to previous tx. Gait distance improved compared to previous tx. P: Continue POC and progress as tolerated.
[2018-03-06 15:18] VITALS: BP 141/64; PULSE 83; RESP 18
--- NOTE | 2018-03-06 17:18 | PN ---
Date/Time of Note Date/Time of Note DATE: 03/06/18 TIME: 17:17 Assessment/Plan VTE Prophylaxis Risk score (from Ns)>0 risk: 4 SCD applied (from Ns): Yes Pharmacological prophylaxis: NA/contraindicated Pharm contraindication: bleeding Lines/Catheters IV [facility] Peripheral IV Urinary Cath still in place: No Assessment/Plan Hospital Course No acute events overnight, patient developed right knee hematoma, continue to hold Lovenox continue knee immobilizer. Hemoglobin is 8.0 today continue to monitor sodium is 134 today, pain is adequately controlled. Assessment/Plan -Right knee osteoarthritis, status post total right knee arthroplasty by Dr Gutiérrez on 03/02/18. -Anemia of acute blood loss. Continue to monitor H&H, will transfuse as needed. -Hyponatremia, resolved. -Hypertension. Continue metoprolol and and Cozaar. -Dyslipidemia. Continue statin. Further recommendations based on clinical course. Plan of care discussed with Dr. Irene. Result Diagram: 03/06/18 0444 03/06/18 0444 Results 24hrs Laboratory Tests Test 03/06/18 04:44 03/06/18 07:49 White Blood Count 9.3 Red Blood Count 2.67 L Hemoglobin 8.0 L Hematocrit 23.6 L Mean Corpuscular Volume 88.4 Mean Corpuscular Hemoglobin 30.0 Mean Corpuscular Hemoglobin Concent 33.9 Red Cell Distribution Width 12.8 Platelet Count 192 Mean Platelet Volume 9.6 Immature Granulocytes % 0.400 Neutrophils % 73.1 Lymphocytes % 11.6 L Monocytes % 12.5 H Eosinophils % 2.2 Basophils % 0.2 Nucleated Red Blood Cells % 0.0 Immature Granulocytes # 0.040 H Neutrophils # 6.8 Lymphocytes # 1.1 Monocytes # 1.2 H Eosinophils # 0.2 Basophils # 0.0 Nucleated Red Blood Cells # 0.0 Sodium Level 134 L Potassium Level 3.5 Chloride Level 96 L Carbon Dioxide Level 31 Anion Gap 7 Blood Urea Nitrogen 9 Creatinine 0.70 Est Glomerular Filtrat Rate mL/min Glucose Level 142 Calcium Level 8.2 L Lab Scanned Report REFERENCE LAB Exam/Review of Systems Vital Signs Vitals Vital Signs Date Temp Pulse Resp B/P (MAP) Pulse Ox O2 O2 Flow FiO2 Time Delivery Rate 03/06/18 98.0 83 18 141/64 100 Room Air 15:18 (89) 03/02/18 2.0 16:30 Intake and Output 03/05/18 03/05/18 03/06/18 1515:00 23:00 07:00 IntakeIntake Total 1150 ml BalanceBalance 1150 ml Exam Constitutional: alert, oriented Head: normocephalic Respiratory: clear to auscultation Cardiovascular: nl pulses Gastrointestinal: soft, non-tender Musculoskeletal: other (R knee swelling, s/p surgery) Neurological: nl mental status Skin: nl turgor Medications Medications Current Medications IV Flush (NS 3 ml) 3 ml PER PROTOCOL IV ; Start 03/02/18 at 11:30 Oxycodone HCl (Roxicodone) 15 mg Q4H PRN PO PAIN Last administered on 03/06/18 02:46; Admin Dose 15 MG; Start 03/02/18 at 11:30 Oxycodone HCl (Roxicodone) 10 mg Q4H PRN PO PAIN Last administered on 03/06/18 08:18; Admin Dose 10 MG; Start 03/02/18 at 11:30 Oxycodone HCl (Roxicodone) 5 mg Q4H PRN PO PAIN Last administered on 03/06/18 16:39; Admin Dose 5 MG; Start 03/02/18 at 11:30 Hydromorphone HCl (Dilaudid) 1 mg Q3H PRN IV BREAKTHROUGH PAIN Last administered on 03/03/18 19:46; Admin Dose 1 MG; Start 03/02/18 at 11:30 Pantoprazole (Protonix Tab) 40 mg DAILY@06 PO Last administered on 03/06/18at 05:14; Admin Dose 40 MG; Start 03/04/18 at 06:00 Simethicone (Mylicon) 80 mg TID PRN PO DISTENSION/GAS/BLOATING; Start 03/02/18 at 11:30 Senna/Docusate Sodium (Senokot-S) 2 tab BID PRN PO CONSTIPATION Last administered on 03/06/18 09:24; Admin Dose 2 TAB; Start 03/02/18 at 11:30 Magnesium Hydroxide (Milk Of Mag) 30 ml HS PRN PO CONSTIPATION; Start 03/02/18 at 11:30 Bisacodyl (Dulcolax Supp) 10 mg DAILY PRN [place] CONSTIPATION; Start 03/02/18 at 11:30 Sodium Biphosphate/ Sodium Phosphate (Fleet Enema) 133 ml DAILY PRN [place] CONSTIPATION; Start 03/02/18 at 11:30 Naloxone HCl (Narcan) 0.2 mg Q2M PRN IV DECREASED REPIRATORY RATE; Start 03/02/18 at 11:30 Atorvastatin Calcium (Lipitor) 20 mg DAILY@21 PO Last administered on 03/05/18at 21:06; Admin Dose 20 MG; Start 03/02/18 at 21:00 Metoprolol Tartrate (Lopressor) 50 mg DAILY PO Last administered on 03/06/18at 08:20; Admin Dose 50 MG; Start 03/02/18 at 14:30 Losartan Potassium (Cozaar) 100 mg DAILY PO Last administered on 03/06/18at 08:18; Admin Dose 100 MG; Start 03/02/18 at 15:30 Acetaminophen (Tylenol Tab) 500 mg Q4H PRN PO MILD PAIN(1-3)OR ELEVATED TEMP; Start 03/02/18 at 20:30 Hydralazine HCl (Apresoline) 25 mg Q6H PRN PO ELEVATED SYSTOLIC BP; Start 03/04/18 at 11:30 Sodium Chloride 1,000 ml @ 75 mls/hr [id number] IV Last administered on 03/06/18at 15:23; Admin Dose 75 MLS/HR; Start 03/04/18 at 21:00 TERESITA ARNOLD Mar 06, 2018 17:18
--- NOTE | 2018-03-06 17:22 | NUR ---
Patient's son at bedside. Both RN and son reassessed patient's right knee and foot. Son reports knee appears more swollen, and swelling in right foot is new. Knee feels warm and there is straw colored drainage noted on wound dressing. Son had concerns and wanted to speak with the surgeon. Called Dr. Davies, left message with answering service (Cr), reported hospital and son's phone number for call back.
--- NOTE | 2018-03-06 18:12 | NUR ---
Have not received call back from Dr. Diaz, fire extinguisher charger Lorena called answering service and paged the doctor.
--- NOTE | 2018-03-06 18:24 | NUR ---
Dr. Gutiérrez called back, rn informed of assessment findings, labs and vital signs; Dr. Ahmadi said he will assess for potential surgical washout patient in the morning and asked this conventional mortgage underwriter to inform son. Informed Mitchell.
--- NOTE | 2018-03-06 19:11 | NUR ---
EOSS Patient a and o x 4. Up with walker, immobilizer kept on knee when patient out of bed. Patient currently wearing immobilizer in bed because she states it feels better to have it on. Right knee, leg and foot appeared more swollen at 1800 than at start of shift. R. knee is warm to touch, slightly reddened skin, and straw colored drainage on gauze dressing. Pulses equal in bilateral feet. Dr. Gutiérrez informed and will assess patient tomorrow for surgical washout; patient will be NPO after midnight; family informed. Unable to elevate knee due to surgeon's orders. Patient reported pain was controlled to goal of 6/10 or less after medication with Oxycodone 10mg and 5 mg during shift; she reports pain is overall decreasing. Hourly rounding performed, bed kept in low, locked position, call light kept within reach.
[2018-03-06 20:10] VITALS: BP 141/64; PULSE 94; RESP 18
[2018-03-06] MEDS: ATORVASTATIN 20 MG TAB PO SCH (20:49)
[2018-03-07 01:51] VITALS: BP 127/59; PULSE 83; RESP 18
[2018-03-07] MEDS: SOD CHLORIDE 0.9% 1,000 ML IV SCH (05:11)
[2018-03-07] MEDS: PANTOPRAZOLE (EC) 40 MG TAB PO SCH (05:15)
[2018-03-07 08:21] VITALS: BP 166/71; PULSE 86; RESP 18
[2018-03-07] MEDS: SENNA/DOCUSATE NA (8.6MG/50MG) TAB PO PRN (08:28)
[2018-03-07] MEDS: METOPROLOL 50 MG TAB PO SCH (08:29)
[2018-03-07] MEDS: LOSARTAN 50 MG TAB PO SCH (08:29)
[2018-03-07] MEDS: oxyCODONE 5 MG TAB PO PRN ×2 (08:30→17:02)
--- NOTE | 2018-03-07 09:36 | NUR ---
PT NOTE Therapy day number 6 Subjective Current complaint of pain Pain Scale NUMERIC Pain Intensity 8 (0-10) Patient Stated Goal for Pain Relief 0 (0-10) Pain Level Comment R knee Transfer Training Start Time 09:36 Supine to Sit Contact Guard Assist Transfer Sit to Stand Ability Supervised Bed Mobility Sit to Supine Contact Guard Assist Toileting Ability Modified Independent Additional Mobility Comments Transfers w/no AD pushing off bed w/BUE Transfer Training End Time 09:50 Total Transfer Training Time 14 min (8-127) Gait Training Start Time 09:50 Gait Assist Levels Supervised Assistive Devices Front Wheel Walker Ambulation Distance 140 feet Additional Gait Comments step to pattern, slight antalgic gait, no LOB/buckling Gait Training End Time 10:05 Total Gait Training Treatment Time 15 min (8-127) Weight Bearing Assessment Label Right Lower Extremity Weight Bearing Status Weight Bearing as Fanny Static Sitting Balance Good Dynamic Sitting Balance Good Standing Static Balance Good Dynamic Standing Balance Fair Additional Balance Assessments Comments FWW Safety Judgement Good Activity Tolerance Good Equipment Present A pump IV pump Additional Equipment Present knee immobilizer Post Treatment Pain Intensity 8 0-10 Variance Documentation SEE BELOW AND PT NOTE Additional Post Treatment Comment CPM Machine 0-40 degrees 0958 Total Treament Time 29 min (8-127) Total Minutes 29 Total Units 2 PT Technical Record Comment PT NOTE S: Pt stated, "I am having more pain, but they gave me medicine for it." Agreeable for PT and cleared per FABIAN Corona: Received pt in semi-fowlers, alert w/family present in room. Donned knee immobilizer in bed Lyla. Bed mobility w/HOB elevated CGA w/this therapist assisting w/RLE off the bed per pt's request. Applied gait belt at EOB. STS w/no AD pushing off bed w/BUE Supervised. Gait training performed w/FWW 140' Supervised. Noted step to pattern, slight antalgic gait, no LOB/buckling, mod/min BUE increased pressure om AD, and steady pace. Pt required min VCs to maintan distance from AD for safe ambulation and to decrease BUE pressure from AD. Pt verbalized and demonstrated w/fair return. Assisted pt back to room BTB CGA w/this therapist assisting w/RLE onto bed per pt's request. Positioned pt for comfort. Doffed knee immobilizer Lyla. This therapist donned CPM machine 0-40 degrees, per . Pt reported it was tolerable and had no c/o. Call lgiht/phone within reach, bed alarmed, SCD reapplied to LLE, and all needs met. RN Janine Orona informed of pt's status and notified of CPM 0-40 degrees donned at 0958. A: Good tolerance to tx. Pt showed no signs of distress or SOB during or after tx. No c/o dizziness or nausea throughout tx. Pt required 1 standing rest break. Gait distance improved compared to previous tx. P: Continue POC and progress as tolerated.
[2018-03-07 10:48] VITALS: BP 132/63; PULSE 71
[2018-03-07] MEDS ORDERED: POLYMYXIN/BACITRACIN 1L IRRIG ONE (11:21)
[2018-03-07] MEDS ORDERED: POLYMYXIN B 500000 UNIT INJ ONE (11:21)
[2018-03-07] MEDS ORDERED: BACITRACIN 50000 UNITS INJ ONE (11:25)
--- NOTE | 2018-03-07 11:25 | PREAC ---
Date/Time of Note Date/Time of Note DATE: 03/07/18 TIME: : Anesthesia Eval and Record Evaluation Time Pre-Procedure Interview DATE: 03/07/18 TIME: 11:22 Age 72 Sex female NPO: 8 hrs Preoperative diagnosis right knee hematoma Planned procedure right knee incision and drainage Past Medical History Past Medical History: Includes Cardio: HTN, Dyslipidemia Surgery & Anesthesia Issues No known issue Meds Anticoagulation: Yes (lovenox held ) Beta Bree within 24 hr: Yes Reason Beta Bree not given: Bradycarida, Hypotension Reported Medications Metoprolol Tartrate* (Lopressor*) 50 Mg Tab, 50 MG PO DAILY, #60 TAB 03/02/18 Atorvastatin* (Atorvastatin*) 40 Mg Tablet, 20 MG PO QHS, #30 TAB 03/02/18 Aspirin* (Aspirin* EC) 81 Mg Tablet.dr, 81 MG PO DAILY, TAB 03/02/18 Losartan-Hydrochlorothiazide (Losartan-HCTZ) 100-12.5 Mg Tab, 1 TAB PO DAILY, TAB 03/02/18 Ranitidine Hcl* (Ranitidine Hcl*) 150 Mg Tablet, 150 MG PO HS, #30 TAB 03/02/18 Current Medications IV Flush (NS 3 ml) 3 ml PER PROTOCOL IV ; Start 03/02/18 at 11:30 Oxycodone HCl (Roxicodone) 15 mg Q4H PRN PO PAIN Last administered on 03/06/18at 02:46; Admin Dose 15 MG; Start 03/02/18 at 11:30 Oxycodone HCl (Roxicodone) 10 mg Q4H PRN PO PAIN Last administered on 03/07/18at 08:30; Admin Dose 10 MG; Start 03/02/18 at 11:30 Oxycodone HCl (Roxicodone) 5 mg Q4H PRN PO PAIN Last administered on 03/06/18at 16:39; Admin Dose 5 MG; Start 03/02/18 at 11:30 Hydromorphone HCl (Dilaudid) 1 mg Q3H PRN IV BREAKTHROUGH PAIN Last administered on 03/03/18at 19:46; Admin Dose 1 MG; Start 03/02/18 at 11:30 Pantoprazole (Protonix Tab) 40 mg DAILY@06 PO Last administered on 03/07/18at 05:15; Admin Dose 40 MG; Start 03/04/18 at 06:00 Simethicone (Mylicon) 80 mg TID PRN PO DISTENSION/GAS/BLOATING; Start 03/02/18 at 11:30 Senna/Docusate Sodium (Senokot-S) 2 tab BID PRN PO CONSTIPATION Last administered on 03/07/18at 08:28; Admin Dose 2 TAB; Start 03/02/18 at 11:30 Magnesium Hydroxide (Milk Of Mag) 30 ml HS PRN PO CONSTIPATION; Start 03/02/18 at 11:30 Bisacodyl (Dulcolax Supp) 10 mg DAILY PRN [place] CONSTIPATION; Start 03/02/18 at 11:30 Sodium Biphosphate/ Sodium Phosphate (Fleet Enema) 133 ml DAILY PRN [place] CONSTIPATION; Start 03/02/18 at 11:30 Naloxone HCl (Narcan) 0.2 mg Q2M PRN IV DECREASED REPIRATORY RATE; Start 03/02/18 at 11:30 Atorvastatin Calcium (Lipitor) 20 mg DAILY@21 PO Last administered on 03/06/18at 20:49; Admin Dose 20 MG; Start 03/02/18 at 21:00 Metoprolol Tartrate (Lopressor) 50 mg DAILY PO Last administered on 03/07/18at 08:29; Admin Dose 50 MG; Start 03/02/18 at 14:30 Losartan Potassium (Cozaar) 100 mg DAILY PO Last administered on 03/07/18at 08:29; Admin Dose 100 MG; Start 03/02/18 at 15:30 Acetaminophen (Tylenol Tab) 500 mg Q4H PRN PO MILD PAIN(1-3)OR ELEVATED TEMP; Start 03/02/18 at 20:30 Hydralazine HCl (Apresoline) 25 mg Q6H PRN PO ELEVATED SYSTOLIC BP; Start 03/04/18 at 11:30 Sodium Chloride 1,000 ml @ 75 mls/hr [id number] IV Last administered on 03/07/18at 05:11; Admin Dose 75 MLS/HR; Start 03/04/18 at 21:00 Meds reviewed: Yes Allergies Coded Allergies: No Known Allergy (Unverified , 03/02/18) Allergies Reviewed: Yes Labs/Studies Labs Reviewed: Reviewed by anesthesiologist Result Diagram: 03/07/18 0423 03/07/18 0423 Laboratory Tests 03/07/18 04:23 Blood Bank Test 03/07/18 08:41 Antibody Screen NEGATIVE Blood Product Summary Counts Blood Type O POSITIVE Crossmatch Red Blood Cells test: N/A Pre-procedure Exam Last vitals Vital Signs Date Temp Pulse Resp B/P (MAP) Pulse Ox O2 O2 Flow FiO2 Time Delivery Rate 03/07/18 71 132/63 10:48 (86) 03/07/18 98.1 18 98 Room Air 08:21 Airway: Adequate mouth opening, Adequate thyromental dist Mallampati: Mallampati II Teeth: Abnormal (dentures) Lung: Normal Heart: Normal ASA Physical Status ASA physical status: 2 Emergency: None Planned Anesthetic General/MAC: LMA Planned Pain Management Parenteral pain med Pre-operative Attestations Prior to commencing anesthesia and surgery, the patient was re-evaluated, there was verification of: *The patient's identity *The results of appropriate recent lab work and preoperative vital signs *The above evaluation not changing prior to induction *Anesthetic plan, risk benefits, alternative and complications discussed with pa tient/family; questions answered; patient/family understands, accepts and wishes to proceed. TOYA DAVIS MD Mar 07, 2018 11:25
--- NOTE | 2018-03-07 11:56 | PN ---
Date/Time of Note Date/Time of Note DATE: 03/07/18 TIME: 11:54 Assessment/Plan Lines/Catheters IV Catheter Type (from Nrsg): Peripheral IV [place] in Place (from Nrsg): No Assessment/Plan Assessment/Plan Patient has had post op bleeding which seems to have slowed down. Recommend restarting CPM. She was easily able to tolerated flexion to 75 degrees Re start dVT prophylaxis, will d/w Dr. Irene best option SUDHEER hose and SCD's OOB with PT Re check CBC in AM. If stable can start cischarge planning Subjective 24 Hr Interval Summary No pain. Ambulated today. Exam/Review of Systems Vital Signs Vitals Vital Signs Date Temp Pulse Resp B/P (MAP) Pulse Ox O2 O2 Flow FiO2 Time Delivery Rate 03/07/18 71 132/63 10:48 (86) 03/07/18 98.1 18 98 Room Air 08:21 Intake and Output 03/06/18 03/06/18 03/07/18 1515:00 23:00 07:00 IntakeIntake Total 800 ml 1450 ml 850 ml BalanceBalance 800 ml 1450 ml 850 ml Exam Free Text/Dictation Right LE Inc c/d/i Mild swelling entire leg Calf soft and non tender Foot warm and well perfused. Intact motor and sensory function Results Result Diagram: 03/07/18 0423 03/07/18 0423 STEVE GÓMEZ MD Mar 07, 2018 11:56
--- NOTE | 2018-03-07 12:15 | NUR ---
Called physical therapy and requested assistance fitting CPM so the bend in behind her Knee. Time to remove CPM per orders is 1330. Called distribution and ordered SUDHEER ayala.
--- NOTE | 2018-03-07 12:41 | NUR ---
KNEE HIGH TEDS: Patient measured for Knee High SUDHEER Hose to right leg as per surgeon's (Dr. Diaz) orders. Calf measured at 13.5 inches, and length from bend of knee to bottom of heel at 15 inches. Ordered Regular Length/MEDIUM sized SUDHEER Hose and applied to right leg as surgeon ordered. Patient tolerated placement of DVT prophylaxis well.
--- NOTE | 2018-03-07 13:46 | NUR ---
PT NOTE Therapy day number 6 Subjective Current complaint of pain Pain Scale NUMERIC Pain Intensity 7 (0-10) Patient Stated Goal for Pain Relief 0 (0-10) Pain Level Comment R knee Transfer Training Start Time 13:46 Supine to Sit Supervised Transfer Sit to Stand Ability Modified Independent Bed Mobility Sit to Supine Contact Guard Assist Toileting Ability Modified Independent Additional Mobility Comments Transfers w/no AD pushing off bed w/BUE Transfer Training End Time 14:00 Total Transfer Training Time 14 min (8-127) Gait Training Start Time 14:00 Gait Assist Levels Supervised Assistive Devices Front Wheel Walker Ambulation Distance 150 feet Additional Gait Comments step to pattern, no LOB/buckling, improved alvina Gait Training End Time 14:24 Total Gait Training Treatment Time 24 min (8-127) Weight Bearing Assessment Label Right Lower Extremity Weight Bearing Status Weight Bearing as Fanny Static Sitting Balance Good Dynamic Sitting Balance Good Standing Static Balance Good Dynamic Standing Balance Fair plus Additional Balance Assessments Comments FWW Safety Judgement Good Equipment Present A pump IV pump Additional Equipment Present knee immobilizer Post Treatment Pain Intensity 6 0-10 Variance Documentation SEE BELOW AND PT NOTE Total Treament Time 38 min (8-127) Total Minutes 38 Total Units 3 PT Technical Record Comment PT NOTE S: Pt stated, "I am feeling better now." Agreeable for PT and cleared per FABIAN Orona O: Received pt in semi-fowlers, alert. Donned knee immobilizer in bed Lyla. Bed mobility w/HOB elevated Supervised. Applied gait belt at EOB. STS w/no AD pushing off bed w/BUE Nba. Assisted pt to toilet per pt's request Nba. Gait training performed afterwards w/FWW 150' Supervised. Noted step to pattern, no LOB/buckling, min BUE increased presure om AD, and improved alvina. Pt required occasionally reminder VCs to maintain distance from AD for safe ambulation and to decrease BUE pressure from AD. Pt verbalized and demonstrated w/fair return. Assisted pt back to room BTB CGA w/this therapist assisting w/RLE onto bed per pt's request. Pt used over head trapeze for repositioning. Doffed knee immobilizer Lyla. Call lgiht/phone within reach, bed alarmed, SCD's reapplied, and all needs met. FABIAN Orona informed of pt's status. A: Good tolerance to tx. Pt showed no signs of distress or SOB during or after tx. No c/o dizziness or nausea throughout tx. Pt required 1 brief standing rest break due to fatigue. Transfers and gait distance improved compared to previous tx. Pt showed improvement w/overall mobility compared to previous tx. P: Continue POC and progress as tolerated.
[2018-03-07 14:33] VITALS: BP 138/60; PULSE 87; RESP 18
--- NOTE | 2018-03-07 14:50 | NUR ---
Patient was taken off CPM at 1336. Worked with PT, per DESIGN STUDIO CONSULTANT Tessy, patient had improved gait, no limp and reported it was easier for her to walk. Patient is requesting for the CPM to be placed back on. Dr. Gutiérrez had requested this contract technical writer to notify him how patient was after CPM and PT. Contacted Dr. Gutiérrez's office, spoke with bipin Rivera to be sent to the doctor. Awaiting call back.
--- NOTE | 2018-03-07 15:33 | PN ---
Date/Time of Note Date/Time of Note DATE: 03/07/18 TIME: 15:32 Assessment/Plan VTE Prophylaxis Risk score (from Ns)>0 risk: 1 SCD applied (from Ns): Yes Pharmacological prophylaxis: NA/contraindicated Pharm contraindication: bleeding Lines/Catheters IV Catheter Type (from Nrs): Peripheral IV Urinary Cath still in place: No Assessment/Plan Hospital Course Patient is awake alert, pain is adequately controlled, hemoglobin is 7.9 continue to monitor we will check CBC tomorrow. Patient was restarted on CPM and tolerated it well. Continue PT. Assessment/Plan -Right knee osteoarthritis, status post total right knee arthroplasty by Dr Gutiérrez on 03/02/18. -Anemia of acute blood loss. Continue to monitor H&H, will transfuse as needed. -Hyponatremia, resolved. -Hypertension. Continue metoprolol and and Cozaar. -Dyslipidemia. Continue statin. Further recommendations based on clinical course. Plan of care discussed with Dr. Irene. Result Diagram: 03/07/18 0423 03/07/18 0423 Results 24hrs Laboratory Tests Test 03/07/18 04:23 White Blood Count 8.0 Red Blood Count 2.61 L Hemoglobin 7.9 L Hematocrit 23.0 L Mean Corpuscular Volume 88.1 Mean Corpuscular Hemoglobin 30.3 Mean Corpuscular Hemoglobin Concent 34.3 Red Cell Distribution Width 13.2 Platelet Count 237 # Mean Platelet Volume 9.1 Immature Granulocytes % 0.500 H Neutrophils % 64.7 Lymphocytes % 17.6 Monocytes % 13.3 H Eosinophils % 3.4 Basophils % 0.5 Nucleated Red Blood Cells % 0.0 Immature Granulocytes # 0.040 H Neutrophils # 5.2 Lymphocytes # 1.4 Monocytes # 1.1 H Eosinophils # 0.3 Basophils # 0.0 Nucleated Red Blood Cells # 0.0 Sodium Level 137 Potassium Level 3.4 L Chloride Level 95 L Carbon Dioxide Level 31 Anion Gap 11 Blood Urea Nitrogen 11 Creatinine 0.65 Est Glomerular Filtrat Rate mL/min Glucose Level 134 Calcium Level 8.6 Exam/Review of Systems Vital Signs Vitals Vital Signs Date Temp Pulse Resp B/P (MAP) Pulse Ox O2 O2 Flow FiO2 Time Delivery Rate 03/07/18 99.2 87 18 138/60 98 Room Air 14:33 (86) Intake and Output 03/06/18 03/06/18 03/07/18 1515:00 23:00 07:00 IntakeIntake Total 800 ml 1450 ml 850 ml BalanceBalance 800 ml 1450 ml 850 ml Exam Constitutional: alert, oriented Head: normocephalic Respiratory: clear to auscultation Cardiovascular: nl pulses Gastrointestinal: soft, non-tender Musculoskeletal: other (R knee swelling, s/p surgery) Neurological: nl mental status Skin: nl turgor Medications Medications Current Medications IV Flush (NS 3 ml) 3 ml PER PROTOCOL IV ; Start 03/02/18 at 11:30 Oxycodone HCl (Roxicodone) 15 mg Q4H PRN PO PAIN Last administered on 03/06/18 02:46; Admin Dose 15 MG; Start 03/02/18 at 11:30 Oxycodone HCl (Roxicodone) 10 mg Q4H PRN PO PAIN Last administered on 03/07/18 08:30; Admin Dose 10 MG; Start 03/02/18 at 11:30 Oxycodone HCl (Roxicodone) 5 mg Q4H PRN PO PAIN Last administered on 03/06/18 16:39; Admin Dose 5 MG; Start 03/02/18 at 11:30 Hydromorphone HCl (Dilaudid) 1 mg Q3H PRN IV BREAKTHROUGH PAIN Last administered on 03/03/18 19:46; Admin Dose 1 MG; Start 03/02/18 at 11:30 Pantoprazole (Protonix Tab) 40 mg DAILY@06 PO Last administered on 03/07/18 05:15; Admin Dose 40 MG; Start 03/04/18 at 06:00 Simethicone (Mylicon) 80 mg TID PRN PO DISTENSION/GAS/BLOATING; Start 03/02/18 at 11:30 Senna/Docusate Sodium (Senokot-S) 2 tab BID PRN PO CONSTIPATION Last administered on 03/07/18 08:28; Admin Dose 2 TAB; Start 03/02/18 at 11:30 Magnesium Hydroxide (Milk Of Mag) 30 ml HS PRN PO CONSTIPATION; Start 03/02/18 at 11:30 Bisacodyl (Dulcolax Supp) 10 mg DAILY PRN [place] CONSTIPATION; Start 03/02/18 at 11:30 Sodium Biphosphate/ Sodium Phosphate (Fleet Enema) 133 ml DAILY PRN [place] CONSTIPATION; Start 03/02/18 at 11:30 Naloxone HCl (Narcan) 0.2 mg Q2M PRN IV DECREASED REPIRATORY RATE; Start 03/02/18 at 11:30 Atorvastatin Calcium (Lipitor) 20 mg DAILY@21 PO Last administered on 03/06/18at 20:49; Admin Dose 20 MG; Start 03/02/18 at 21:00 Metoprolol Tartrate (Lopressor) 50 mg DAILY PO Last administered on 03/07/18at 08:29; Admin Dose 50 MG; Start 03/02/18 at 14:30 Losartan Potassium (Cozaar) 100 mg DAILY PO Last administered on 03/07/18at 08:29; Admin Dose 100 MG; Start 03/02/18 at 15:30 Acetaminophen (Tylenol Tab) 500 mg Q4H PRN PO MILD PAIN(1-3)OR ELEVATED TEMP; Start 03/02/18 at 20:30 Hydralazine HCl (Apresoline) 25 mg Q6H PRN PO ELEVATED SYSTOLIC BP; Start 03/04/18 at 11:30 Aspirin (Ecotrin) 325 mg DAILY PO ; Start 03/08/18 at 09:00 TERESITA ARNOLD Mar 07, 2018 15:33
--- NOTE | 2018-03-07 19:04 | NUR ---
EOSS Dr. Durham evaluated patient and placed patient on CPM to determine if she may need surgery due to edematous RLE. Patient started on CPM, SUDHEER hose applied to edematous RLE; after 3 hours patient was noted to have decreased pain in right knee and decreased edema. Able to move toes and pulses equal bilaterally in LE. Up with physical therapy using walker, immobilizer used when out of bed. Dressing to knee changed with Dr. Gutiérrez; new guaze and tegaderm placed over incision site. IVF d/c, patient encouraged to eat some salt in her diet due to previous hyponatremia. Medicated for chepe with Roxicodone 10mg twice with tolerable pain relief reported by patient. Hemoglobin and Hemoatocrit stable from yesterday to today per Dr. Gutiérrez. Possible d/c tomorrow per Dr. Gutiérrez. Addendum: 03/07/18 at 1911 by MICKEY NIEVES RN New orders for CPM 0-90 as tolerated by patient for 3 hours in AM and PM. CPM stopped at 1900. Patient tolerated well and reports CPM is helping her right knee feel better due to decreased pressure.
[2018-03-07 19:50] VITALS: BP 134/65; PULSE 83; RESP 18
[2018-03-07] MEDS: ATORVASTATIN 20 MG TAB PO SCH (20:28)
[2018-03-08] MEDS: oxyCODONE 5 MG TAB PO PRN ×5 (00:35→18:26)
[2018-03-08 02:26] VITALS: BP 126/59; PULSE 75; RESP 18
[2018-03-08] MEDS: PANTOPRAZOLE (EC) 40 MG TAB PO SCH (06:11)
--- NOTE | 2018-03-08 06:48 | NUR ---
End of Shift Summary: Pt is A&O x4. Vital signs within normal limits. No acute changes. Respiratory and hemodynamics remain stable. Patient denies chest pain, palpitations, shortness of breath, nausea, vomiting, headache, cough, or changes in bowel/bladder habits. Pt tolerated regular diet. Monitored right knee swelling and applied ice packs. Pt received roxicodone for pain management. Safety precautions maintained throughout the shift. Bed in lowest position and bed alarm activated. Call light within reach. Hourly rounding rendered. All needs met.
[2018-03-08 07:44] VITALS: BP 153/68; PULSE 80; RESP 18
--- NOTE | 2018-03-08 08:50 | PN ---
Date/Time of Note Date/Time of Note DATE: 03/08/18 TIME: 08:48 Assessment/Plan Lines/Catheters IV Catheter Type (from Nrsg): Peripheral IV Ull[place] in Place (from Nrsg): No Assessment/Plan Assessment/Plan Improved Hct is higher today. pain is well controlled. On aspirin, SCD's Ok to discharge to home today with DME's Will follow up in my office on Monday Subjective 24 Hr Interval Summary Pain well controlled. Exam/Review of Systems Vital Signs Vitals Vital Signs Date Temp Pulse Resp B/P (MAP) Pulse Ox O2 O2 Flow FiO2 Time Delivery Rate 03/08/18 99.1 80 18 153/68 96 07:44 (96) 03/07/18 Room Air 14:33 Intake and Output 03/07/18 03/07/18 03/08/18 1414:59 22:59 06:59 IntakeIntake Total 675 ml BalanceBalance 675 ml Exam Free Text/Dictation Right Knee Dressing c/d/i No erythema Calf soft Intact motor and sensory function in toes Results Result Diagram: 03/08/18 0436 03/08/18 0436 STEVE GÓMEZ MD Mar 08, 2018 08:50
[2018-03-08] MEDS: METOPROLOL 50 MG TAB PO SCH (08:53)
[2018-03-08] MEDS: LOSARTAN 50 MG TAB PO SCH (08:53)
--- NOTE | 2018-03-08 08:55 | NUR ---
PT NOTE Therapy day number 7 Subjective Current complaint of pain Pain Scale NUMERIC Pain Intensity 7 (0-10) Patient Stated Goal for Pain Relief 0 (0-10) Pain Level Comment R knee Transfer Training Start Time 08:55 Supine to Sit Modified Independent Transfer Sit to Stand Ability Modified Independent Bed Mobility Sit to Supine Supervised Toileting Ability Independent Additional Mobility Comments Transfers w/no AD pushing off bed w/BUE Transfer Training End Time 09:10 Total Transfer Training Time 15 min (8-127) Gait Training Start Time 09:10 Gait Assist Levels Supervised Assistive Devices Front Wheel Walker Ambulation Distance 170 feet Additional Gait Comments step to pattern, no LOB/buckling, improved alvina Gait Training End Time 09:35 Total Gait Training Treatment Time 25 min (8-127) Weight Bearing Assessment Label Right Lower Extremity Weight Bearing Status Weight Bearing as Fanny Static Sitting Balance Good Dynamic Sitting Balance Good Standing Static Balance Good Dynamic Standing Balance Fair plus Additional Balance Assessments Comments FWW Safety Judgement Good Activity Tolerance Good Additional Equipment Present knee immobilizer Post Treatment Pain Intensity 9 0-10 Variance Documentation SEE BELOW AND PT NOTE Additional Post Treatment Comment CPM Machine 0-75 degrees 0935 Total Treament Time 40 min (8-127) Total Minutes 40 Total Units 3 PT Technical Record Comment PT NOTE S: Pt stated, "I am still in pain. Nothing new." Agreeable for PT and cleared per FABIAN Sparks. O: Received pt in semi-fowlers, alert. Donned knee immobilizer in bed Lyla. Bed mobility w/HOB elevated Nba. Applied gait belt at EOB. STS w/no AD pushing off bed w/BUE Nba. Assisted pt to toilet per pt's request Independent. Gait training performed afterwards w/FWW 170' Supervised. Noted step to pattern, no LOB/buckling, min BUE increased pressure om AD, and improved alvina. Pt required occasionally reminder VCs to maintain to decrease BUE pressure from AD. Pt verbalized and demonstrated w/fair return. Assisted pt back to room BTB Supervised/Nba. Doffed knee immobilizer Lyla. This therapist donned CPM machine 0935 075 degrees, pt reported it was tolerable, RN notified. Positioned pt for comfort, call lgiht/phone within reach, bed alarmed, SCD reapplied to LLE, and all needs met. FABIAN Sparks informed of pt's status. A: Good tolerance to tx. Pt showed no signs of distress or SOB during or after tx. No c/o dizziness or nausea throughout tx. Pt required 2 brief standing rest break due to fatigue. Transfers and gait distance improved compared to previous tx. P: Continue POC and progress as tolerated.
[2018-03-08] MEDS ORDERED: ASPIRIN (EC) 325 MG TAB PO SCH (09:00)
--- NOTE | 2018-03-08 13:20 | NUR ---
PT NOTE Therapy day number 7 Subjective Current complaint of pain Pain Scale NUMERIC Pain Intensity 8 (0-10) Patient Stated Goal for Pain Relief 0 (0-10) Pain Level Comment R Knee Transfer Training Start Time 13:20 Supine to Sit Modified Independent Transfer Sit to Stand Ability Modified Independent Toileting Ability Independent Additional Mobility Comments Transfers w/no AD pushing off bed w/BUE Transfer Training End Time 13:32 Total Transfer Training Time 12 min (8-127) Gait Training Start Time 13:32 Gait Assist Levels Supervised Assistive Devices Front Wheel Walker Ambulation Distance 180 feet Additional Gait Comments step to pattern, no LOB/buckling, improved alvina Gait Training End Time 13:45 Total Gait Training Treatment Time 13 min (8-127) Weight Bearing Assessment Label Right Lower Extremity Weight Bearing Status Weight Bearing as Fanny Static Sitting Balance Good Dynamic Sitting Balance Good Standing Static Balance Good Dynamic Standing Balance Fair plus Additional Balance Assessments Comments FWW Safety Judgement Good Activity Tolerance Good Additional Equipment Present knee immobilizer Post Treatment Pain Intensity 8 0-10 Variance Documentation SEE BELOW AND PT NOTE Total Treament Time 25 min (8-127) Total Minutes 25 Total Units 2 PT Technical Record Comment PT NOTE S: Pt stated, "My knee hurts more. I feel that machine made my knee hurt worst. I just couldn't tolerate it after." Agreeable for PT and cleared per FABIAN Sparks. O: Received pt in semi-fowlers, alert w/famlily present in room. Donned knee immobilizer in bed Lyla. Bed mobility w/HOB elevated Nba. Applied gait belt at EOB. STS using BR Nba. Assisted pt to toilet per pt's request Independent. Gait training performed afterwards w/FWW 180' Supervised/Nba. Noted step to pattern, no LOB/buckling, min BUE increased pressure om AD, and improved alvina. Pt required reminder VCs to decrease BUE pressure from AD. Pt verbalized and demonstrated w/fair return. Assisted pt back to room BTB Nba. Doffed knee immobilizer Lyla. Positioned pt for comfort, call lgiht/phone within reach, bed alarmed, SCD reapplied to LLE, and all needs met. FABIAN Sparks informed of pt's status. A: Good tolerance to tx. Pt showed no signs of distress or SOB during or after tx. No c/o dizziness or nausea throughout tx. Pt required 1 brief standing rest break due to pain. Bed mobility and gait distance improved compared to previous tx. Pt is clear to ambulate w/nursing staff in hallway w/FWW and gait belt for safety. P: Continue POC and progress as tolerated. Addendum: 03/08/18 at 1441 by LESLI MOE [place] ACTOR ADDITION Pt must use knee immobilizer when OOB w/nursing, RN notified.
[2018-03-08] MEDS ORDERED: POTASSIUM CHLORIDE 20 MEQ POWDER FOR ORAL SOLN PO ONE (14:30)
--- NOTE | 2018-03-08 16:29 | NUR ---
REYES NOTES: S/W PT'S DAUGHTER WHO IS AT THE BEDSIDE AND PT. THEY ONLY WANT THE SNF PLACEMENT AT [facility], ROOM [address] [phone]. CONFIRMED THE ACCEPTANCE STILL WITH RAVEN, STRATEGY CONSULTANT. ALSO S/W RAVEN STRATEGY CONSULTANT THAT PT WILL NEED CPM. PER RAVEN, SHE IS MAKING ARRANGEMENTS AND PT CAN BE TRANSFERRED AFTER 5PM. ORDERED [facility] [phone], TRIPS #S [id number] TO TRANSFER THE PT AT 5:15PM. THIS CM ALSO EXPLAINED IMM TO THE DAUGHTER AND THE PT. PROVIDED YEMENI VERSION TO THE PT TO SIGN. IT IS PLACED IN THE CHART. BEDSIDE NURSE WAS INFORMED ALL UPDATE. OLGA BECKHAM CM [id number] Addendum: 03/08/18 at 1633 by OLGA CORRALES CM Amended: Links added.
[2018-03-08 16:46] VITALS: BP 149/67; PULSE 87; RESP 18
--- NOTE | 2018-03-08 16:51 | NUR ---
NRSG NOTE Report given to Ricarda PERALTA at [facility] for pt to transfer to room 42-A. Will prepare pt for apple picker.
[2018-03-08 18:35] VITALS: BP 177/72; PULSE 85
[2018-03-08 19:04] VITALS: BP 154/68; PULSE 88
--- NOTE | 2018-03-08 19:08 | NUR ---
DISCHARGE NOTE IV d/c. Blood pressure improved after administration of 2 tab roxicodone. Discharge instructions given to pt and her son who will follow to [facility]. Pt discharged from unit via ambulance with all her belongings.
--- NOTE | 2018-03-11 23:51 | DS ---
Date/Time of Note Date/Time of Note DATE: 03/11/18 TIME: 23:46 Discharge Summary Admission/Discharge Info Admit Date/Time Mar 05, 2018 at 09:48 Discharge Date/Time Mar 08, 2018 at 19:15 Patient Condition: Stable Hx of Present Illness The patient is a 72-year-old female with history of hypertension, dyslipidemia, who was seen by Dr. Gutiérrez as an outpatient for worsening right knee pain due to degenerative joint disease. The patient failed conservative treatment and was recommended to undergo total knee replacement. The patient was seen by Dr. Freddie Roe for cardiac clearance and was cleared for surgery. The patient was brought in to hospital today and underwent right total knee replacement. Postoperative pain is being managed by oxycodone and Dilaudid. The patient denies any chest pain or shortness of breath. No history of headaches and syncope. No history of CVA in the past. No known history of diabetes. No history of recent nausea, vomiting or diarrhea. No history of dysuria or hematuria prior to surgery. No history of any focal weakness including both motor and sensory deficit prior to surgery. Hospital Course Pt d/[facility] to [facility] -Right knee osteoarthritis, status post total right knee arthroplasty by Dr Gutiérrez on 03/02/18. -Anemia of acute blood loss. Continue to monitor H&H, will transfuse as needed. H&H is stable. Pt is able to tolerate CPM. Restarted on Aspirin. -Hyponatremia, resolved. -Hypertension. Continue metoprolol and and Cozaar. -Dyslipidemia. Continue statin. Plan of care discussed with Dr. Irene. Home Meds Reported Medications Metoprolol Tartrate* (Lopressor*) 50 Mg Tab, 50 MG PO DAILY, #60 TAB 03/02/18 Atorvastatin* (Atorvastatin*) 40 Mg Tablet, 20 MG PO QHS, #30 TAB 03/02/18 Discontinued Reported Medications Aspirin* (Aspirin* EC) 81 Mg Tablet., 81 MG PO DAILY, TAB 03/02/18 Losartan-Hydrochlorothiazide (Losartan-HCTZ) 100-12.5 Mg Tab, 1 TAB PO DAILY, TAB 03/02/18 Ranitidine Hcl* (Ranitidine Hcl*) 150 Mg Tablet, 150 MG PO HS, #30 TAB 03/02/18 Follow-up Plan f/up with Dr Gutiérrez in 1 week. Primary Care Provider Not On Staff Doctor Time spent on discharge: > 30 minutes TERESITA ARNOLD Mar 11, 2018 23:51
== END 2018-03-08 19:15 | DRG 470 ==
LOC: REC 06:32 → INTOOBSV 06:32 → MS1 12:41 → OBSVTOIN 03-05 09:48
PROVIDERS: ADMIT Specialist; ATTEND Internal Medicine
PROC: 0SRC0J9 Replacement of Right Knee Joint with Synthetic Substitute, Cemented, Open Approach (ICD-10-PCS; principal; 2018-03-02 08:00)
DX: M17.11 Unilateral primary osteoarthritis, right knee (principal); E87.1 Hypo-osmolality and hyponatremia; D62 Acute posthemorrhagic anemia; I10 Essential (primary) hypertension; E78.5 Hyperlipidemia, unspecified; D72.829 Elevated white blood cell count, unspecified; R50.9 Fever, unspecified
CPT/HCPCS: 73560; 80048; 80053; 81001; 85025; 85610; 85730; 86850; 86900; 86901; 86920; 87086; 88304; 88311; 93971; 97110; 97116; 97161; 97530; 99217; A4310; C1713; C1776; G0378; J0690; J1170; J1650; J2250; J2274; J2405; J2765; J2795; J3010; J7030